=== PATIENT | female | born 1965 | race Caucasian/White ===

== ENCOUNTER → 2018-03-22 00:50 | Outpatient (CLI) | payer OTHER, SELFPAY ==
[2018-03-22 09:54] LABS: Hemoglobin A1C 10.5 % (4.5-6.2)
[2018-03-22 11:40] LABS: ALT 39 U/L (12-78); AST 31 U/L (15-37); Albumin 3.4 g/dL (3.4-5.0); Alkaline Phosphatase 120 U/L (46-116); Anion Gap 6.8 mmol/L (3-11); BUN 20 mg/dL (7-18); Bilirubin, Total 0.3 mg/dL (0.2-1.0); CO2 29.2 mmol/L (21.0-32.0); Calcium 8.7 mg/dL (8.5-10.1); Chloride 104 mmol/L (98-107); Cholesterol 202 mg/dL (50-200); Glucose 145 mg/dL (70-100); HDL Cholesterol 50 mg/dL (40-60); LDL CHOLESTEROL 143 mg/dL (<100); Potassium 4.7 mmol/L (3.5-5.1); Sodium 140 mmol/L (136-145); TSH (W/Ref FT4) 1.99 uIU/mL (0.358-3.74); Total Protein 6.7 g/dL (6.4-8.2); Triglyceride 62 mg/dL (30-150)
== END ==
PROVIDERS: Nurse Practitioner Gerontology; PCP Nurse Practitioner Family; Visit Provider Nurse Practitioner Family
DX: E03.9 Hypothyroidism, unspecified (principal); E11.9 Type 2 diabetes mellitus without complications; I10 Essential (primary) hypertension; Z01.419 Encounter for gynecological examination (general) (routine) without abnormal findings
CPT/HCPCS: 36415; 80053; 80061; 83721; 83036; 84443

== ENCOUNTER → 2018-03-26 12:31 | Outpatient (REF) | payer OTHER, SELFPAY ==
[2018-03-26 13:07] LABS: COMMENT (LAB VIEW ONLY) 33.58 mg/dL; Microalb ug/mg Crea 53.3 ug/mg Cr
== END ==
LOC: LBN 12:31
PROVIDERS: PCP Nurse Practitioner Family; Visit Provider Nurse Practitioner Family
DX: E10.9 Type 1 diabetes mellitus without complications (principal)
CPT/HCPCS: 82043; 82570

== ENCOUNTER 2018-06-11 07:54 | Outpatient (CLI) | payer OTHER, SELFPAY ==
[2018-06-12 19:53] LABS: Fructosamine 298 mcmol/L (200 - 285)
== END 2018-06-11 08:14 ==
PROVIDERS: PCP Nurse Practitioner Family; Visit Provider Internal Medicine Endocrinology, Diabetes & Metabolism
DX: E11.65 Type 2 diabetes mellitus with hyperglycemia (principal)
CPT/HCPCS: 36415; 82985

== ENCOUNTER 2018-07-09 02:11 | Outpatient (CLI) | payer OTHER, SELFPAY ==
[2018-07-09 17:08] LABS: FREE T4 1.27 ng/dL (0.76-1.46); TSH 2.94 uIU/mL (0.358-3.74)
[2018-07-09 17:26] LABS: Hemoglobin A1C 8.6 % (4.5-6.2)
== END 2018-07-09 02:31 ==
PROVIDERS: PCP Nurse Practitioner Family; Visit Provider Nurse Practitioner Family
DX: E10.9 Type 1 diabetes mellitus without complications (principal); E03.9 Hypothyroidism, unspecified
CPT/HCPCS: 36415; 83036; 84439; 84443

== ENCOUNTER 2018-09-26 11:17 | Outpatient (CLI) | payer OTHER, SELFPAY ==
--- NOTE | 2018-09-26 10:17 | DI.RAD_ITS ---
SYMPTOM/DIAGNOSIS: LT FOOT PAIN AFTER STUBBING TOES, M79.451 LEFT FOOT: No fracture or dislocation is seen. There are no significant degenerative changes. A heel spur is seen. IMPRESSION: No acute abnormality.
== END 2018-09-26 11:37 ==
PROVIDERS: PCP Nurse Practitioner Family; Visit Provider Nurse Practitioner Family
DX: M79.672 Pain in left foot (principal); M77.32 Calcaneal spur, left foot
CPT/HCPCS: 73630

== ENCOUNTER 2018-10-03 01:08 | Outpatient (CLI) | payer OTHER, SELFPAY ==
[2018-10-03 10:38] LABS: ALT 45 U/L (12-78); AST 30 U/L (15-37); Albumin 3.5 g/dL (3.4-5.0); Alkaline Phosphatase 153 U/L (46-116); Anion Gap 7.3 mmol/L (3-11); BUN 31 mg/dL (7-18); Bilirubin, Total 0.3 mg/dL (0.2-1.0); CO2 28.7 mmol/L (21.0-32.0); CREATININE 0.85 mg/dL (0.55-1.02); Calcium 9.4 mg/dL (8.5-10.1); Chloride 103 mmol/L (98-107); Cholesterol 175 mg/dL (50-200); Glucose 236 mg/dL (70-100); HDL Cholesterol 49 mg/dL (40-60); LDL CHOLESTEROL 112 mg/dL (<100); Potassium 4.9 mmol/L (3.5-5.1); Sodium 139 mmol/L (136-145); Total Protein 6.7 g/dL (6.4-8.2); Triglyceride 100 mg/dL (30-150)
[2018-10-03 10:43] LABS: Hemoglobin A1C 8.7 % (4.5-6.2)
== END 2018-10-03 01:28 ==
PROVIDERS: PCP Nurse Practitioner Family; Visit Provider Nurse Practitioner Family
DX: E10.9 Type 1 diabetes mellitus without complications (principal); E78.5 Hyperlipidemia, unspecified; I10 Essential (primary) hypertension
CPT/HCPCS: 36415; 80053; 80061; 83721; 83036

== ENCOUNTER 2019-01-05 01:24 | Outpatient (CLI) | payer OTHER, SELFPAY ==
--- NOTE | 2019-01-05 13:00 | DI.MAMMO_ITS ---
SYMPTOM/DIAGNOSIS: SCREENING, Z12.31 MAMMOGRAMS: Mammograms were interpreted according to the usual protocol including computer analysis with CAD system, tomosynthesis and C view imaging. Comparison with prior examinations. Breast density C. No suspicious masses or microcalcifications are seen. There is no definite evidence of malignancy. IMPRESSION: Negative mammogram. Routine screening is recommended. Category 1, breast density C. MQSA ASSESSMENT OF FINDINGS: Negative. Category 1. Patient will receive a letter notifying them of these results. Bi-RADS category C. The breasts are heterogeneously dense, which may obscure small masses.
== END 2019-01-05 01:44 ==
PROVIDERS: PCP Nurse Practitioner Family; Visit Provider Nurse Practitioner Family
DX: Z12.31 Encounter for screening mammogram for malignant neoplasm of breast (principal)
CPT/HCPCS: 77063; 77067

== ENCOUNTER 2019-02-17 01:37 | Outpatient (CLI) | payer OTHER, SELFPAY ==
[2019-02-17 09:24] LABS: FREE T4 1.37 ng/dL (0.76-1.46); TSH 1.91 uIU/mL (0.36-3.74)
[2019-02-18 14:35] LABS: Fructosamine 333 mcmol/L (200 - 285)
== END 2019-02-17 01:57 ==
PROVIDERS: Internal Medicine Endocrinology, Diabetes & Metabolism; PCP Nurse Practitioner Family; Visit Provider Nurse Practitioner Family
DX: E03.9 Hypothyroidism, unspecified (principal); E11.65 Type 2 diabetes mellitus with hyperglycemia
CPT/HCPCS: 36415; 82985; 84439; 84443

== ENCOUNTER 2019-02-25 07:05 | Outpatient (CLI) | payer OTHER, SELFPAY ==
[2019-02-25 08:12] LABS: Anion Gap 11.3 mmol/L (3-11); BUN 26 mg/dL (7-18); CO2 24.7 mmol/L (21.0-32.0); CREATININE 0.77 mg/dL (0.55-1.02); Calcium 8.8 mg/dL (8.5-10.1); Chloride 103 mmol/L (98-107); Glucose 125 mg/dL (70-100); Potassium 4.7 mmol/L (3.5-5.1); Sodium 139 mmol/L (136-145)
[2019-02-25 08:17] LABS: Hemoglobin A1C 8.8 % (4.5-6.2)
[2019-02-26 10:52] LABS: C-Peptide <0.1 ng/mL (1.1 - 4.4)
== END 2019-02-25 07:25 ==
PROVIDERS: PCP Nurse Practitioner Family; Visit Provider Internal Medicine Endocrinology, Diabetes & Metabolism
DX: E10.65 Type 1 diabetes mellitus with hyperglycemia (principal)
CPT/HCPCS: 36415; 80048; 86341; 83036; 84681

== ENCOUNTER 2019-05-18 15:18 | Outpatient (CLI) | payer OTHER, SELFPAY ==
[2019-05-18 16:15] LABS: Hemoglobin A1C 8.3 % (4.5-6.2)
== END 2019-05-18 15:38 ==
PROVIDERS: PCP Nurse Practitioner Family; Visit Provider Internal Medicine Endocrinology, Diabetes & Metabolism
DX: E10.65 Type 1 diabetes mellitus with hyperglycemia (principal)
CPT/HCPCS: 36415; 83036

== ENCOUNTER 2019-08-11 15:23 | Outpatient (CLI) | payer OTHER, SELFPAY ==
[2019-08-11 16:34] LABS: Hemoglobin A1C 9.1 % (3.8-5.6)
[2019-08-11 16:51] LABS: COMMENT (LAB VIEW ONLY) 110.88 mg/dL
[2019-08-11 16:53] LABS: Microalb ug/mg Crea 149.4 ug/mg Cr
[2019-08-11 16:54] LABS: Anion Gap 10.6 mmol/L (3-11); BUN 26 mg/dL (7-18); CO2 27.4 mmol/L (21.0-32.0); CREATININE 0.86 mg/dL (0.55-1.02); Calcium 9.9 mg/dL (8.5-10.1); Chloride 103 mmol/L (98-107); Glucose 169 mg/dL (74-106); Potassium 4.5 mmol/L (3.5-5.1); Sodium 141 mmol/L (136-145); TSH 9.27 uIU/mL (0.36-3.74)
== END 2019-08-11 15:43 ==
PROVIDERS: PCP Nurse Practitioner Family; Visit Provider Internal Medicine Endocrinology, Diabetes & Metabolism
DX: E10.65 Type 1 diabetes mellitus with hyperglycemia (principal); E03.9 Hypothyroidism, unspecified
CPT/HCPCS: 36415; 80048; 82043; 82570; 83036; 84439; 84443

== ENCOUNTER 2020-01-05 03:36 | Outpatient (CLI) | payer OTHER, SELFPAY ==
[2020-01-05 07:45] LABS: Hemoglobin A1C 9.1 % (3.8-5.6)
[2020-01-05 08:28] LABS: Anion Gap 6.3 mmol/L (3-11); BUN 19 mg/dL (7-18); CO2 31.7 mmol/L (21.0-32.0); CREATININE 0.88 mg/dL (0.55-1.02); Calcium 9.1 mg/dL (8.5-10.1); Calculated LDL 144 mg/dL (<100); Chloride 104 mmol/L (98-107); Cholesterol 204 mg/dL (<200); Glucose 152 mg/dL (74-106); HDL Cholesterol 48 mg/dL (40-60); Potassium 4.6 mmol/L (3.5-5.1); Sodium 142 mmol/L (136-145); Triglyceride 63 mg/dL (<150)
== END 2020-01-05 03:56 ==
PROVIDERS: PCP Nurse Practitioner Family; Visit Provider Nurse Practitioner Family
DX: E10.9 Type 1 diabetes mellitus without complications (principal); E03.9 Hypothyroidism, unspecified
CPT/HCPCS: 36415; 80048; 80061; 83036; 84439; 84443

== ENCOUNTER 2020-01-20 01:27 | Outpatient (CLI) | payer OTHER, SELFPAY ==
--- NOTE | 2020-01-20 08:45 | DI.MAMMO_ITS ---
EXAM: MG MAMMO SCREENING CLINICAL HISTORY: screening,Z12.39 TECHNIQUE: Mammograms were interpreted according to the usual protocol including computer analysis w [employer] CAD system, tomosynthesis and C-view imaging. COMPARISON: FINDINGS: The breasts are heterogeneously dense with fairly symmetrical distribution of fibroglandular tissue. No dominant mass or clumped microcalcification is identified in either breast. The current examinat ion is compared with previous studies including December 2018 and there has been no gross interval change in appearance. IMPRESSION: No specific evidence of malignancy at this time. Routine screening examinations are suggested at yea rly intervals in this age group according to the ACS ACR guidelines. BI-RADS Category 1 - Negative Breast Density - Category C - Heterogeneously dense
== END 2020-01-20 01:47 ==
PROVIDERS: PCP Nurse Practitioner Family; Visit Provider Nurse Practitioner Family
DX: Z12.31 Encounter for screening mammogram for malignant neoplasm of breast (principal)
CPT/HCPCS: 77063; 77067

== ENCOUNTER 2020-03-22 15:56 | Outpatient (CLI) | payer OTHER, SELFPAY ==
--- NOTE | 2020-03-22 09:02 | DI.RAD_ITS ---
EXAM: XR SHOULDER RT COMPLETE 2+V CLINICAL HISTORY: Right shoulder pain. Limited ROM, M25.511 TECHNIQUE: COMPARISON: No exams were available for comparison FINDINGS: Six views were obtained. There is minimal marginal osteophyte formation of the glenoid and humeral h ead. Minimal hypertrophic degenerative changes noted at the acromioclavicular joint. No other signi ficant bony or soft tissue abnormality seen. Cartilaginous joint space of the glenohumeral joint eitan ears well maintained. IMPRESSION: Minimal DJD of the joints of the shoulder. RADIATION DOSE DELIVERED: Total DLP
== END 2020-03-22 16:16 ==
PROVIDERS: PCP Nurse Practitioner Family; Visit Provider Nurse Practitioner Family
DX: M19.011 Primary osteoarthritis, right shoulder (principal); M25.511 Pain in right shoulder; M25.611 Stiffness of right shoulder, not elsewhere classified; M25.711 Osteophyte, right shoulder
CPT/HCPCS: 73030

== ENCOUNTER 2020-04-04 07:40 | Outpatient (CLI) | payer OTHER, SELFPAY ==
[2020-04-05 14:46] LABS: COVID-19 RT-PCR Result NEGATIVE (Negative)
== END 2020-04-04 08:00 ==
PROVIDERS: PCP Nurse Practitioner Family; Visit Provider Family Medicine
DX: Z11.59 Encounter for screening for other viral diseases (principal); Z01.811 Encounter for preprocedural respiratory examination
CPT/HCPCS: U0003

== ENCOUNTER 2020-04-07 03:15 | Outpatient (CLI) | payer OTHER, SELFPAY ==
[2020-04-07] MEDS: Albuterol HFA 18 GM 200 PUFF INH IH (11:26)
[2020-04-07] MEDS: Inhaler, Assist Device 1 EACH MC (11:27)
--- NOTE | 2020-04-11 08:27 | PFT_ITS ---
Date of service: 04/07/20 Time of Service: 10:11 Pulmonary Function Test Result Interpretation Spirometry: No evidence of obstructive airways disease but there is significant bronchodilator response. This represents a much better patient effort.Therefore, the true validity of this result is questionable Lung Volumes: No restriction Diffusion Capacity: Normal Airway Pressure: Normal Impression No evidence of obstructive airways disease but there is significant bronc hodilator response. This represents a much better patient effort.Therefore, the true validity of this result is questionable Clinical Correlation therefore is recommended.
== END 2020-04-07 03:35 ==
PROVIDERS: PCP Nurse Practitioner Family; Visit Provider Nurse Practitioner Family
DX: R06.2 Wheezing (principal); R05 Cough; R07.89 Other chest pain
CPT/HCPCS: 94060; 94726; 94729

== ENCOUNTER 2020-04-11 22:00 | Outpatient (REF) | payer OTHER, SELFPAY ==
[2020-04-11 21:33] LABS: FREE T4 1.45 ng/dL (0.76-1.46); TSH 4.53 uIU/mL (0.36-3.74)
== END 2020-04-11 22:20 ==
LOC: LBN 22:00
PROVIDERS: PCP Nurse Practitioner Family; Visit Provider Nurse Practitioner Family
DX: E03.9 Hypothyroidism, unspecified (principal)
CPT/HCPCS: 84439; 84443

== ENCOUNTER 2020-04-13 01:57 | Outpatient (CLI) | payer OTHER, SELFPAY ==
--- NOTE | 2020-04-13 07:00 | DI.US_ITS ---
EXAM: US PELVIS TRANSVAGINAL CLINICAL HISTORY: Assess for endometrial stripe, ovarian cyst,postmenopausal bleeding,n95.0 TECHNIQUE: Ultrasound performed using standard protocol. COMPARISON: No exams were available for comparison FINDINGS: Pelvic ultrasound was performed transabdominally and transvaginally. Please see the accompanying debra a sheet for measurements of the pelvic structures. The myometrium has a heterogeneous echotexture, no definite focal lesion seen. Endometrial stripe is about 7 millimeters in thickness and is heterogeneous in appearance, this is an abnormal finding in a postmenopausal patient and endometrial biopsy is recommended to evaluate the possibility of neoplas tic process. Left ovary nonvisualized. Right ovary contains a 15 millimeter in diameter simple cyst. Limited scanning of the kidneys is unremarkable. No free fluid identified in pelvis. IMPRESSION: Thickened heterogeneous endometrial stripe, 7 millimeters, abnormal in a postmenopausal patient, endo metrial biopsy should be considered to evaluate the possibility of neoplastic process. DATA REPOSITORY:
== END 2020-04-13 02:17 ==
PROVIDERS: PCP Nurse Practitioner Family; Visit Provider Nurse Practitioner Family
DX: N95.0 Postmenopausal bleeding (principal); N85.8 Other specified noninflammatory disorders of uterus
CPT/HCPCS: 76830; 76856

== ENCOUNTER 2020-04-14 15:31 | Outpatient (REF) | payer OTHER, SELFPAY ==
--- NOTE | 2020-04-14 14:36 | ENDOMET_PTH ---
PATIENT: Zara Strong LOC: [facility] U#:[id number] AGE/SX: 54/F ROOM: RE04/14/[address]: Kendra Negron DO : 1965 BED: DIS: 04/14/2020 SPEC #: [id number] RECD: 04/14/20 18:17 STATUS: KINJAL REQ #: [id number] [place]: 04/14/20 14:[address]: Kendra Negrno DEPT: Surgical Specimen RECD BY: Keeley Raza ENTERED: 04/14/20 18:18 SP TYPE: Endomet OTHR DR: RAKAN Gaxiola Tissues: 1 - ENDOMETRIUM BX/CURRETTE 2 - ENDOMETRIUM BX/CURRETTE Procedures: GROSS AND MICRO LEVEL 4 Comments: [id number]
== END 2020-04-14 15:51 ==
LOC: LBN 15:31
PROVIDERS: PCP Nurse Practitioner Family; Visit Provider Obstetrics & Gynecology
DX: N85.8 Other specified noninflammatory disorders of uterus (principal); N84.0 Polyp of corpus uteri
CPT/HCPCS: 88305

== ENCOUNTER 2020-04-22 04:18 | Outpatient (CLI) | payer OTHER, SELFPAY ==
--- NOTE | 2020-04-22 06:15 | DI.MRI_ITS ---
EXAM: MR UPPER JOINT RT WO CLINICAL HISTORY: Traumatic R Shoulder pain and weakness,m25.511. TECHNIQUE: Multiplanar multisequence MRI was performed. COMPARISON: CR XR SHOULDER RT COMPLETE 2+V from 03/22/2020 FINDINGS: The examination is limited due to patient motion artifact. BONES: There is no fracture or contusion pattern. JOINTS: The acromioclavicular joint is normal. The glenohumeral joint is normal. TENDONS: Supraspinatus: Partial articular surface supraspinatus tendon tear. Infraspinatus: Unremarkable. Subscapularis: Tendinosis of the superior aspect of the subscapularis tendon. Teres Minor: Unremarkable. Biceps and [place]: Unremarkable. MUSCLES: Unremarkable. GLENOID LABRUM: Unremarkable on this noncontrast examination. SOFT TISSUES: Unremarkable. LIGAMENTS: Unremarkable. OTHER: Small amount of fluid in the subacromial bursa. IMPRESSION: 1. Partial articular surface supraspinatus tendon tear. 2. Tendinosis of the subscapularis tendon. 3. Mild subacromial bursitis. DATA REPOSITORY:
== END 2020-04-22 04:38 ==
PROVIDERS: PCP Nurse Practitioner Family; Visit Provider Nurse Practitioner Family
DX: M25.511 Pain in right shoulder (principal); S46.011A Strain of muscle(s) and tendon(s) of the rotator cuff of right shoulder, initial encounter; M75.51 Bursitis of right shoulder; M75.91 Shoulder lesion, unspecified, right shoulder
CPT/HCPCS: 73221

== ENCOUNTER 2020-06-17 03:11 | Outpatient (CLI) | payer OTHER, SELFPAY ==
[2020-06-17 08:25] LABS: Hemoglobin A1C 7.3 % (<5.7)
[2020-06-17 09:16] LABS: Anion Gap 5.3 mmol/L (3-11); BUN 16 mg/dL (7-18); CO2 29.7 mmol/L (21.0-32.0); CREATININE 0.77 mg/dL (0.55-1.02); Calcium 9.3 mg/dL (8.5-10.1); Chloride 105 mmol/L (98-107); Glucose 70 mg/dL (74-106); Potassium 4.4 mmol/L (3.5-5.1); Sodium 140 mmol/L (136-145); TSH 7.85 uIU/mL (0.36-3.74)
== END 2020-06-17 03:31 ==
PROVIDERS: PCP Nurse Practitioner Family; Visit Provider Internal Medicine Endocrinology, Diabetes & Metabolism
DX: E03.9 Hypothyroidism, unspecified (principal); E10.65 Type 1 diabetes mellitus with hyperglycemia
CPT/HCPCS: 36415; 80048; 83036; 84443

== ENCOUNTER 2020-09-22 03:15 | Outpatient (CLI) | payer OTHER, SELFPAY ==
[2020-09-22 11:43] LABS: ALT 49 U/L (14-59); AST 33 U/L (15-37); Albumin 3.7 g/dL (3.4-5.0); Alkaline Phosphatase 137 U/L (46-116); Anion Gap 9.3 mmol/L (3-11); BUN 17 mg/dL (7-18); Bilirubin, Total 0.3 mg/dL (0.2-1.0); CO2 27.7 mmol/L (21.0-32.0); CREATININE 0.7 mg/dL (0.55-1.02); Calcium 9.9 mg/dL (8.5-10.1); Calculated LDL 69 mg/dL (<100); Chloride 103 mmol/L (98-107); Cholesterol 144 mg/dL (<200); Glucose 152 mg/dL (74-106); HDL Cholesterol 60 mg/dL (40-60); Potassium 4.7 mmol/L (3.5-5.1); Sodium 140 mmol/L (136-145); Total Protein 7.4 g/dL (6.4-8.2); Triglyceride 76 mg/dL (<150)
[2020-09-22 11:48] LABS: FREE T4 1.45 ng/dL (0.76-1.46); TSH 2.95 uIU/mL (0.36-3.74)
[2020-09-22 12:00] LABS: Hemoglobin A1C 7.1 % (<5.7)
[2020-09-23 21:29] LABS: Fructosamine 285 mcmol/L (200 - 285)
== END 2020-09-22 03:16 | disposition home or self-care (01) ==
LOC: LBO 03:15
PROVIDERS: PCP Nurse Practitioner Family; Visit Provider Internal Medicine Endocrinology, Diabetes & Metabolism
DX: E03.9 Hypothyroidism, unspecified (principal); E10.3293 Type 1 diabetes mellitus with mild nonproliferative diabetic retinopathy without macular edema, bilateral
CPT/HCPCS: 36415; 80053; 80061; 82985; 83036; 84439; 84443

== ENCOUNTER 2021-01-03 03:29 | Outpatient (CLI) | payer OTHER, SELFPAY ==
[2021-01-03 13:35] LABS: COMMENT (LAB VIEW ONLY) 173.41 mg/dL
[2021-01-04 18:51] LABS: Fructosamine 245 mcmol/L (200 - 285)
== END 2021-01-03 03:30 | disposition home or self-care (01) ==
LOC: LOS 03:29
PROVIDERS: PCP Nurse Practitioner Family; Visit Provider Internal Medicine Endocrinology, Diabetes & Metabolism
DX: E10.65 Type 1 diabetes mellitus with hyperglycemia (principal); E10.29 Type 1 diabetes mellitus with other diabetic kidney complication
CPT/HCPCS: 36415; 82043; 82570; 82985; 83036

== ENCOUNTER 2021-02-28 13:04 | Outpatient (CLI) | payer OTHER, SELFPAY ==
--- NOTE | 2021-02-28 09:41 | DI.MAMMO_ITS ---
Exam(s) MAMMO SCREENING EXAM: MAMMO SCREENING CLINICAL HISTORY: screening,Z12.39 TECHNIQUE: Mammograms were interpreted according to the usual protocol including computer analysis w [employer] CAD system, tomosynthesis and C-view imaging. COMPARISON: FINDINGS: The breasts are heterogeneously dense. There is no dominant mass microcalcification identified in ei ther breast. The current examination is compared with previous examinations including December 2019 and there has been no gross interval change in appearance in comparison with the prior studies. IMPRESSION: No specific evidence of malignancy at this time. Routine screening examinations are suggested at yea rly intervals due to the family history of breast carcinoma. BI-RADS Category 1 - Negative Breast Density - Category C - Heterogeneously dense
== END 2021-02-28 13:24 ==
PROVIDERS: PCP Nurse Practitioner Family; Visit Provider Nurse Practitioner Family
DX: Z12.31 Encounter for screening mammogram for malignant neoplasm of breast (principal); Z80.3 Family history of malignant neoplasm of breast
CPT/HCPCS: 77063; 77067

== ENCOUNTER 2021-03-21 04:21 | Outpatient (CLI) | payer OTHER, SELFPAY ==
[2021-03-21 10:26] LABS: Abs Immature Grans 0.03 10^3/uL (0.0-0.06); Absolute Basophil Count 0.07 10^3/uL (0.0-0.2); Absolute Eosinophil Count 0.34 10^3/uL (0.0-0.7); Absolute Lymphocyte Count 2.88 10^3/uL (1.2-3.4); Absolute Monocyte Count 0.71 10^3/uL (0.1-0.8); Absolute Neutrophil Count 4.54 10^3/uL (1.2-6.7); Basophils % 0.8; HCT 35.5 % (36.0-46.0); HGB 11.7 g/dL (11.2-15.7); Immature Grans % 0.4; Lymphocytes % 33.6; MCH 27.6 pg (27.0-33.0); MCV 83.7 fL (80-95); MPV 9.8 fL (8.0-11.0); Monocytes % 8.3; Neutrophils % 52.9; Nucleated RBC 0 %; Platelet Count 286 10^3/uL (130-400); RBC 4.24 10^6/uL (3.93-5.22); RDW 14.1 % (11.7-14.6); RDW-SD 42.6 fL; WBC 8.57 10^3/uL (4.4-10.8)
[2021-03-21 11:12] LABS: Glucose 104 mg/dL (74-106)
[2021-03-21 12:48] LABS: Source Nasal/Nares
[2021-03-21 15:33] LABS: COVID-19 PCR Negative (Negative)
== END 2021-03-21 04:22 | disposition home or self-care (01) ==
LOC: LBO 04:21
PROVIDERS: PCP Nurse Practitioner Family; Visit Provider Obstetrics & Gynecology
DX: N95.0 Postmenopausal bleeding (principal); E10.9 Type 1 diabetes mellitus without complications; I10 Essential (primary) hypertension; N18.9 Chronic kidney disease, unspecified; Z20.822 Contact with and (suspected) exposure to COVID-19; Z01.818 Encounter for other preprocedural examination; Z01.812 Encounter for preprocedural laboratory examination
CPT/HCPCS: 36415; 82947; 86850; 86900; 86901; 87635; 85025

== ENCOUNTER 2021-03-23 06:02 | Day surgery (SDC) | payer OTHER, SELFPAY ==
[2021-03-23 06:14] VITALS: BP 143/65; PULSE 67; RESP 18; TEMP 36.8; O2SAT 99
--- NOTE | 2021-03-23 06:53 | ANES.PREOP_ITS ---
General Info Date of Service Date Performed: 03/23/21 Height: 5 ft 2 in Weight: 100 kg Body Mass Index (BMI): 40.3 Surgical Procedure: Operation Date: 03/23/21 07:40 Proposed Procedures Side Surgeon p Dilation & Curettage with Hysteroscopy Kendra Negron DO Meds Allergies and Home Medications Allergies Allergy/AdvReac Type Severity Reaction Status Date / Time Latex, Natural Rubber Allergy Unknown Skin Rash Verified 03/23/21 06:25 Home Medication Medication Instructions Recorded blood sugar diagnostic #50 each 09/25/18 multivitamin 1 cap PO DAILY 09/25/18 vitamin B complex 1 tab PO DAILY 09/25/18 albuterol sulfate 90 mcg/actuation 2 inh IH Q6H PRN #18 gm 01/07/20 aerosol inhaler blood-glucose meter,continuous #1 each 04/05/20 blood-glucose sensor #4 each 04/05/20 blood-glucose transmitter #1 each 04/05/20 insulin lispro 100 unit/mL See Rx Instructions SUBCUT AC #4 08/11/20 subcutaneous pen syrg fluticasone propionate 110 1 inh INHALATION BID #12 g 09/12/20 mcg/actuation HFA aerosol inhaler levothyroxine 175 mcg tablet 175 mcg PO DAILY #90 tab-cap 09/26/20 lisinopril 40 mg tablet 40 mg PO DAILY #90 tab-cap 10/13/20 pravastatin 10 mg tablet 10 mg PO DAILY #90 tab 11/17/20 chlorthalidone 25 mg tablet 25 mg PO DAILY #90 tab 01/27/21 cranberry concentrate-ascorbic 4 cap PO DAILY cap 01/27/21 acid 4,200 mg-20 mg capsule insulin degludec 100 unit/mL (3 26 - 28 unit SC QHS ml 01/27/21 mL) subcutaneous pen clotrimazole 1 % topical cream 1 applic TOPICAL BID #45 g 01/30/21 norethindrone acetate 5 mg tablet 5 mg PO .COMPLEX #30 tab 02/03/21 Current Visit Medications: Current Medications Generic Name Dose Route Start Last Admin Trade Name Freq PRN Reason Stop Dose Admin Ringer's Solution 1,000 mls @ 125 mls/hr 03/23/21 06:00 IV 04/21/21 23:59 INFUSION SHERRI IV Miscellaneous Supplies 1 each 03/23/21 06:00 Iv Access IV 04/21/21 23:59 DIRECTED SHERRI Sodium Chloride 0 ml 03/23/21 06:00 Normal Saline Flush 10 Ml Syr IV 04/21/21 23:59 PRN PRN Sodium Chloride 0 ml 03/23/21 06:00 Normal Saline 10 Ml Vial IJ 04/21/21 23:59 DIRECTED PRN Sterile Water 0 ml 03/23/21 06:00 Water,Injection,Sterile 10 Ml Vial IJ 04/21/21 23:59 DIRECTED PRN PFSH Active Problems Active Problems: Problem Status Onset Code Postmenopausal bleeding N95.0 Type 1 diabetes mellitus 1971 E10.9 CKD (chronic kidney disease) N18.9 Essential hypertension I10 Hyperlipidemia E78.5 Hypothyroidism E03.9 Mild persistent asthma J45.30 Diabetic retinopathy E11.319 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 Patten Surgical History Surgical History History of bilateral tubal ligation (05/30/95) History of section (08/31/86) 08/31/86; 05/30/95 History of left cataract surgery (10/13/13) History of right cataract surgery (10/27/13) S/P arthroscopy of right shoulder (07/08/20) With decompression, biceps tenodesisis, labral debridement at [facility] Tobacco Smoking/Tobacco Use Status: Former Tobacco Use Tobacco: How many years used: 38 Passive smoking exposure: Yes Second hand exposure: Yes Alcohol Alcohol Intake: former Substance Use Substance use: Rarely Substance use type: marijuana Details: last used marijuana over a year ago Prental History History 2 Para 2 Hx # Term Pregnancies Multiple births Hx # Pregnancies Ectopic pregnancies AB induced Hx Number of Living Children 2 AB spontaneous Vital Signs and Lab Results Vital Signs Most Recent Vital Signs in EMR: Most Recent Vital Signs Temp Pulse Resp BP Pulse Ox 36.8 C 67 18 143/65 H 99 03/23/21 06:14 03/23/21 06:14 03/23/21 06:14 03/23/21 06:14 03/23/21 06:14 Lab Results Blood Type / Crossmatch: Patient ABO/Rh O Positive 03/21/21 10:05 03/21/21 Antibody Screen NEGATIVE 03/21/21 10:05 03/21/21 Complete Blood Count: White Blood Count 8.57 10^3/uL (4.4-10.8) 03/21/21 10:05 03/21/21 Red Blood Count 4.24 10^6/uL (3.93-5.22) 03/21/21 10:05 03/21/21 Hemoglobin 11.7 g/dL (11.2-15.7) 03/21/21 10:05 03/21/21 Hematocrit 35.5 % (36.0-46.0) L 03/21/21 10:05 03/21/21 Platelet Count 286 10^3/uL (130-400) 03/21/21 10:05 03/21/21 Complete Metabolic Panel: Glucose Level 104 mg/dL (74-106) 03/21/21 10:05 03/21/21 Liver Function Panel: No Data to Display Coagulation Panel: No Data to Display Cardiac Panel: No Data to Display Arterial Blood Gas: No Data to Display Venous Blood Gas: No Data to Display Pancreas Panel: No Data to Display Thyroid Panel: No Data to Display Infectious Disease: Coronavirus (COVID-19)(PCR) Negative (Negative) 03/21/21 10:09 03/21/21 Coronavirus 2019 Source Nasal/Nares 03/21/21 10:09 03/21/21 Blood Cultures: No Data to Display Toxicology Panel: No Data to Display Imaging and Studies Imaging and Studies Pulmonary Function Summary: Impression No evidence of obstructive airways disease but there is significant bronchodilator response. This represents a much better patient effort.Therefore, the true validity of this result is questionable Clinical Correlation therefore is recommended. 04/11/20 Anesthesia Assessment and Plan Anesthesia History Personal History: No History of Anesthesia Complications Family History: No Family History of Anesthesia Complications Exercise Tolerance Exercise Tolerance: Metabolic Equivalents<4 Pertinent Negatives Pertinent Negatives: No Symptoms of GERD, No Major Cardiovascular Symptoms or Complaints, No History of CVA/TIA and Other (mild persistent asthma, BID flovent, rarely uses rescue inhaler. Exercise limited by SOB) Cardiac & Pulmonary Exam Cardiac Exam: Normal S1/S2 Heart Sounds Pulmonary Exam: Clear Bilateral Breath Sounds Airway Exam Known Difficult Airway: No Mallampati Class: 2 Mouth Opening: Normal (> 3cm) Thyromental Distance: Greater than 3 cm Neck Range of Motion: Full ROM Neck Circumference: Normal Teeth Condition: Normal Dentition ASA Classification ASA Score: ASA 3 Emergency Case?: No NPO Status NPO Status: NPO Clears >2 hours, Solids >8 hours Anesthesia Plan Resuscitation Status: Full Code Anesthesia Technique: General Anesthesia Airway Planned: Natural Airway Monitors Used: Standard Monitors
[2021-03-23] MEDS: Lactated Ringers 1,000 ML 125 ML IV (06:57)
[2021-03-23 07:16] VITALS: BMI 40.3
--- NOTE | 2021-03-23 07:45 | ENDO_PTH ---
PATIENT: Zara Strong LOC: [facility] U#:[id number] AGE/SX: 55/F ROOM: RE03/23/[address]: Kendra Negron DO : 1965 BED: DIS: 03/23/2021 SPEC #: [id number] RECD: 03/23/21 12:47 STATUS: KINJAL RE #: [id number] [place]: 03/23/21 07:[address]: Kendra Negron DEPT: Surgical Specimen RECD BY: Keeley Raza ENTERED: 03/23/21 12:48 SP TYPE: Endo OTHR DR: RAKAN Gaxiola Tissues: 1 - ENDOCERVICAL BX/CURRETTE 2 - ENDOMETRIUM BX/CURRETTE Procedures: GROSS AND MICRO LEVEL 4 Comments: [id number]
--- NOTE | 2021-03-23 08:06 | W.PM.OP ---
Date of service: 03/23/21 Time of Service: 08:06 Operative Note Operative Note DATE OF PROCEDURE: 03/23/21 PRE-OP DIAGNOSIS: Postmenopausal bleeding and 16mm endometrium POST-OP DIAGNOSIS: same (With evidence of multiple endometrial polyps) PROCEDURE: Hysteroscopy with dilation and curettage SURGEON: Judith Negron ANESTHESIA TYPE: General:No Airway Refer to Anesthesia Record ESTIMATED BLOOD LOSS: 20 PATHOLOGY: other (1. Endocervical curetting 2. Endometrial curetting) COMPLICATIONS: None Patient was transported to: same day Patient's condition: stable Indications: Postmenopausal bleeding and thickened endometrium Findings: Ripley endometrium with multiple polypoid structures Procedure Description: Patient was taken the operating suite with an IV running where she is placed in dorsal supine position. Anesthesia administered via monitored anesthesia care. She was then placed in the modified dorsolithotomy position in yellowfin stirrups and prepped and draped in the usual sterile fashion. Exam under anesthesia revealed a uterus that is midline and mobile. Speculum was placed into the posterior vaginal vault and single-tooth tenaculum used to grasp the anterior lip of the cervix. Cervical os dilated to the point that a 5 mm hysteroscope could be passed with ease. With instillation of normal saline for visualization of the endometrial cavity, entire endometrial cavity was inspected. There was a plush endometrial lining along with multiple polypoid structures. There is no discrete fibroid known. At this point hysteroscope was removed and endocervical curettage performed. This was followed by sharp endometrial curettage with retrieval of multiple small polyps. At this point, the procedure was terminated. Speculum and tenaculum were removed. Tenaculum sites were hemostatic. Patient was returned to the dorsal supine position and awoke from anesthesia with ease. She was taken to recovery room in stable condition. Findings: [place]y endometrium with multiple polypoid structures EBL: 20 cc Pathology 1. Endocervical curettings 2. Endometrial curettings Complications: None apparent
[2021-03-23 08:08] VITALS: BP 135/59; PULSE 69; RESP 20; TEMP 36.5; O2SAT 98
--- NOTE | 2021-03-23 08:08 | W.ANESPOSTOP ---
Postoperative Evaluation Date, Time and Location Date Performed: 03/23/21 Time Performed: 08:08 Patient Location: Day Surgery Unit Vital Signs Most Recent Imported Vital Signs: Most Recent Vital Signs Temp Pulse Resp BP Pulse Ox 36.8 C 67 18 143/65 H 99 03/23/21 06:14 03/23/21 06:14 03/23/21 06:14 03/23/21 06:14 03/23/21 06:14 Most Recent Manually Entered Vital Signs: Adult Blood Pressure: 135/59 Heart Rate: 74 Respirations: 12 Oxygen Saturation (%): 99 Temperature (C): 36.5 C Pain Score (0-10 Scale): 5 Pain Score Most Recent Pain Score: Most Recent Pain Score Pain Level 0 03/23/21 06:14 Assessment Mental Status: Awake (Alert & Oriented to Patient Baseline) Airway and Respiratory Function: Patent airway with normal (patient baseline) respiratory exam Cardiovascular Function: Hemodynamically Stable Hydration Status: Adequately Hydrated Nausea & Vomiting: No Nausea or Vomiting Pain: Pain is tolerable per patient (Post op tylenol and ibuprofen) Peripheral Nerve Block: Patient did not receive a nerve block
[2021-03-23 08:10] VITALS: BP 135/59; PULSE 74; RESP 12; TEMPC 36.5; O2SAT 99
[2021-03-23] MEDS: Acetaminophen 500 MG TAB 1000 MG PO (08:29)
[2021-03-23 08:40] VITALS: BP 145/67; PULSE 66; RESP 18; TEMP 36.5; O2SAT 99
== END 2021-03-23 09:16 | disposition home or self-care (01) ==
PROVIDERS: PCP Nurse Practitioner Family; Visit Provider Obstetrics & Gynecology
PROC: 0UDB8ZZ Extraction of Endometrium, Via Natural or Artificial Opening Endoscopic (ICD-10-PCS; CPT 58558; principal; 2021-03-23 07:30)
DX: N84.0 Polyp of corpus uteri (principal); N95.0 Postmenopausal bleeding; E11.9 Type 2 diabetes mellitus without complications; I10 Essential (primary) hypertension; E66.9 Obesity, unspecified; Z98.890 Other specified postprocedural states
CPT/HCPCS: 58558; 88305; J2001; J2370

== ENCOUNTER 2021-04-04 17:30 | Outpatient (REF) | payer OTHER, SELFPAY ==
--- NOTE | 2021-04-04 16:30 | SKI_PTH ---
PATIENT: Zara Strong LOC: [facility] U#:[id number] AGE/SX: 55/F ROOM: RE04/04/[address]: Phi Peralta DO : 1965 BED: DIS: 04/04/2021 SPEC #: [id number] RECD: 04/05/21 12:39 STATUS: KINJAL REChristian #: [id number] [place]: 04/04/21 16:[address]: Phi Peralta DEPT: Surgical Specimen RECD BY: Keeley Raza ENTERED: 04/05/21 12:39 SP TYPE: DELROY DAVIS DR: RAKAN Gaxiola Tissues: 1 - SKIN BIOPSY(SHAVE/PUNCH) Procedures: IMMUNOPEROXIDASE STAIN SKIN LEVEL 4 Comments: [id number]
== END 2021-04-04 17:31 | disposition home or self-care (01) ==
LOC: LBN 17:30
PROVIDERS: PCP Nurse Practitioner Family; Visit Provider Emergency Medicine
DX: L98.6 Other infiltrative disorders of the skin and subcutaneous tissue (principal)
CPT/HCPCS: 88305; 88361

== ENCOUNTER 2021-06-23 02:54 | Outpatient (CLI) | payer OTHER, SELFPAY ==
[2021-06-23 15:21] LABS: Hemoglobin A1C 6.5 % (<5.7)
[2021-06-23 15:30] LABS: COMMENT (LAB VIEW ONLY) 92.73 mg/dL; Microalb ug/mg Crea 72.5 ug/mg Cr
[2021-06-24 11:58] LABS: Fructosamine 259 mcmol/L (200 - 285)
== END 2021-06-23 02:55 | disposition home or self-care (01) ==
LOC: LBO 02:54
PROVIDERS: PCP Nurse Practitioner Family; Visit Provider Internal Medicine Endocrinology, Diabetes & Metabolism
DX: E10.65 Type 1 diabetes mellitus with hyperglycemia (principal); E10.29 Type 1 diabetes mellitus with other diabetic kidney complication
CPT/HCPCS: 36415; 82043; 82570; 82985; 83036

== ENCOUNTER 2021-09-19 04:00 | Outpatient (CLI) | payer OTHER, SELFPAY ==
[2021-09-19 14:20] LABS: Hemoglobin A1C 6.7 % (<5.7)
[2021-09-19 14:30] LABS: BUN 27 mg/dL (7-18); CREATININE 0.9 mg/dL (0.55-1.02); Calcium 9.2 mg/dL (8.5-10.1); Calculated LDL 110 mg/dL (<100); Chloride 104 mmol/L (98-107); Cholesterol 180 mg/dL (<200); Glucose 142 mg/dL (74-106); HDL Cholesterol 55 mg/dL (40-60); Potassium 4.7 mmol/L (3.5-5.1); Sodium 140 mmol/L (136-145); TSH 1.21 uIU/mL (0.36-3.74); Triglyceride 79 mg/dL (<150)
[2021-09-19 14:51] LABS: FREE T4 1.33 ng/dL (0.76-1.46)
[2021-09-20 15:22] LABS: Fructosamine 276 mcmol/L (200 - 285)
== END 2021-09-19 04:01 | disposition home or self-care (01) ==
LOC: LBO 04:00
PROVIDERS: PCP Nurse Practitioner Family; Visit Provider Internal Medicine Endocrinology, Diabetes & Metabolism
DX: E10.65 Type 1 diabetes mellitus with hyperglycemia (principal); E78.00 Pure hypercholesterolemia, unspecified
CPT/HCPCS: 36415; 80048; 80061; 82985; 83036; 84439; 84443

== ENCOUNTER 2022-01-24 01:57 | Outpatient (CLI) | payer OTHER, SELFPAY ==
[2022-01-24 13:42] LABS: Hemoglobin A1C 7.1 % (<5.7)
[2022-01-24 13:55] LABS: Anion Gap 6.1 mmol/L (3-11); BUN 31 mg/dL (7-18); CO2 27.9 mmol/L (21.0-32.0); CREATININE 0.8 mg/dL (0.55-1.02); Chloride 103 mmol/L (98-107); Glucose 150 mg/dL (74-106); Potassium 4.2 mmol/L (3.5-5.1); Sodium 137 mmol/L (136-145)
[2022-01-24 13:59] LABS: COMMENT (LAB VIEW ONLY) 66.41 mg/dL; Microalb ug/mg Crea 141.1 ug/mg Cr
[2022-01-25 16:05] LABS: Fructosamine 303 mcmol/L (200 - 285)
== END 2022-01-24 01:58 | disposition home or self-care (01) ==
LOC: LBO 01:57
PROVIDERS: PCP Nurse Practitioner Family; Visit Provider Internal Medicine Endocrinology, Diabetes & Metabolism
DX: E10.65 Type 1 diabetes mellitus with hyperglycemia (principal)
CPT/HCPCS: 36415; 80048; 82043; 82570; 82985; 83036

== ENCOUNTER → 2022-02-13 00:33 | Outpatient (CLI) | payer OTHER, SELFPAY ==
--- NOTE | 2022-02-13 09:00 | ETT_ITS ---
APPROVED REPORT Exam: Exercise Treadmill Patient Location: Out-Patient Room/Bed: Stress Nurse: Brandie Bhakta RN Ordering Provider:BLAYNE SHAH, Contact Number: [phone] BMI: 39.13 Baseline Rhythm: Sinus Rhythm Comment: Biphasic T waves lead III Indications: Chest pain Medical History Medical History: Heart murmur, hypertension, hyperlipidemia, asthma, diabetes type I, obesity, CKD, d iabetic retinopathy, heart murmur Cardiac Medications: Pravastatin, lisinopril, levothyroxine, chlorthalidone, albuterol sulfate, insul in lispro, insuling degludec Allergies: Latex, natural rubber Cardiac Risk Factors: Hypertension, hyperlipidemia, asthma, diabetes type I, obesity, smoker (former) , PVD, family hx Previous Cardiac Procedures: None Pretest Chest Pain Characteristics: None Exercise History: Sedentary Physical Disabilities: None Lung Sounds: Clear to auscultation Heart Sounds: Murmur Stress Test Details Test: Exercise stress testing was performed using a Solomon protocol. Rest Stress HR Resting HR Supine: 67 bpm Max Heart Rate (APMHR): 163 bpm Resting HR Standin bpm Target HR (85% APMHR): 138 bpm Max HR Achieved: 125 bpm % of APMHR: 76 Recovery HR: 85 bpm HR response to stress: Normal HR response to stress BP Resting BP Supine: 124/60 mmHg Resting BP Standin/64 mmHg Max BP: 150/66 mmHg Recovery BP: 122/58 mmHg BP response to stress: Normal blood pressure response to stress. ECG Resting EC Ectopy: None Stress ECG: Sinus Tachycardia ST Change: Horizontal ST depression Lead(s): II, III, aVF, V4-V6 Stage: [address] Deviation: 0.5-1 mm Arrhythmia: None Recovery ECG: Sinus Rhythm Recovery ST Change: Horizontal ST depression, Downsloping ST depression Lead(s): II, III, aVF, V4-V6 Recovery ST Deviation: 1-2 mm Recovery Arrhythmia: Rare PAC, 4 beat run SVT Comment: ST depressions resolved by minute 12 recovery Clinical Reason for Termination: Fatigue Stress Symptoms: Chest tightness, General Fatigue, Dyspnea Exercise duration: 6 min09 sec Highest Stage Reached: Stage 3: 3.4 mph at 14% grade. Exercise capacity: 7.27 METs Angina Score: Non-Limiting Meza Treadmill Score: 0.5 Rate Pressure Product: [id number] Stress ECG Conclusion 1. Resting electrocardiogram showed minor nondiagnostic ST abnormalities 2. Patient exercised on the Solomon protocol and completed a workload of 7.27 METS 3. Normal hemodynamic response to exercise . Patient achieved 76% of maximal predicted heart rate fo r age 4. Electrocardiographic portion of the test was consistent with myocardial ischemia with downsloping ST depression in the inferior and anterolateral leads 5. There were no significant dysrhythmias Meza Treadmill Score is 0.5 which is Moderate risk. Stress Test Summary STAGE Time (mins) Speed (mph) Grade (%) HR BP SpO2 SYMPTOMS METS Supine 67 124/60 SpO2 98% Standing 69 118/64 SpO2 98% 1 3 1.7 10 117 128/54 SpO2 97% 4.5 2 6 2.5 12 121 140/64 SpO2 97% Mild SOB 7 3 9 3.4 14 122 SpO2 97% Chest tightness 4/10 10 1 min recovery 105 142/58 SpO2 98% Chest tightness 4/10 3 min recovery 88 148/70 SpO2 97% SOB resolved, chest tightness 4/10 6 min recovery 80 150/66 SpO2 98% Chest tightness resolved 9 min recovery 85 122/58 SpO2 98%
== END ==
PROVIDERS: PCP Nurse Practitioner Family; Visit Provider Nurse Practitioner
DX: R07.9 Chest pain, unspecified (principal)
CPT/HCPCS: 93017

== ENCOUNTER → 2022-03-21 01:27 | Outpatient (CLI) | payer OTHER, SELFPAY ==
--- NOTE | 2022-03-21 15:32 | DI.MAMMO_ITS ---
Exam(s) MAMMO SCREENING EXAM: MAMMO SCREENING CLINICAL HISTORY: screening,Z12.39. TECHNIQUE: Bilateral full field digital CC and MLO mammographic images were obtained with 3D tomosyn thesis and utilizing computer aided detection (CAD). COMPARISON: Prior mammograms were reviewed, the most recent being February 2021.. FINDINGS: There has been no significant change in the appearance and distribution of the fibroglandular tissue which is again noted be moderately dense. There are no new significant radiograph findings in left breast. In the right breast on 3D MLO imaging there is a subtle suggestion asymmetric density-possible nodule located 6 cm in from the nipple on the MLO view and measuring approximately 9 by 5 millimeters. Not previously evident. There are no malignant-appearing microcalcification groups in this region or el sewhere in either breast. There is no significant architectural distortion nor skin thickening-retraction. IMPRESSION: 1. Subtle suggestion of possible 9 x 5 millimeter nodular density in the right breast as seen on 3D MLO view. Spot compression view and ultrasound recommended. BI-RADS Category 0 - Assessment Incomplete: Need additional imaging evaluation Breast Density - Category C - Heterogeneously dense Breast density Category C or D implies that the patient has dense breast tissue. Dense breast tissue can make it harder to find cancer on a mammogram. Dense breast tissue is also associated with an incr eased risk of breast cancer. This information about the result of the mammogram report was provided to the patient to raise their awareness. Use this report when you speak with the patient about their risks for breast cancer, which includes their family history. At that time, you may recommend additional screening tests (Ultrasoun d or MRI) as these tests may add significant information. A negative radiographic report should not delay biopsy if a dominant or clinically suspicious mass is present. Up to ten percent of cancers are not identified on mammography. A negative report may reinforce clinical impression. Adenosis and dense breasts may obscure an underlying neoplasm. False positive reports average 6 to 10%. Patient will receive a letter notifying them of these results.
== END ==
PROVIDERS: PCP Nurse Practitioner Family; Visit Provider Nurse Practitioner
DX: Z12.31 Encounter for screening mammogram for malignant neoplasm of breast (principal); R92.8 Other abnormal and inconclusive findings on diagnostic imaging of breast
CPT/HCPCS: 77063; 77067

== ENCOUNTER → 2022-03-29 03:17 | Outpatient (CLI) | payer OTHER, SELFPAY ==
--- NOTE | 2022-03-29 | DI.MAMMO_ITS ---
Exam(s) MG MAMMO SCREEN CALL BACK UNI US BREAST RT COMPLETE EXAM: MG MAMMO SCREEN CALL BACK UNI- RIGHT AND COMPLETE RIGHT BREAST ULTRASOUND CLINICAL HISTORY: NODULAR DENSITY RT BREAST. TECHNIQUE: Unilateral spot mammographic images obtained with 3D tomosynthesisand utilizing computer aided detection (CAD). . Complete RIGHT breast Ultrasound was also performed, including all 4 quadrants, the retroareolar vargas on, and the ipsilateral axilla. COMPARISON: Prior mammograms were reviewed. This additional imaging was performed due to findings described on the recent screening mammogram of 03/21/2022. FINDINGS: DIAGNOSTIC RIGHT BREAST MAMMOGRAM: Additional mammographic views performed todayrender this area less concerning. The nodular density i s less visible on the spot compression 3D MLO view. COMPLETE RIGHT BREAST ULTRASOUND: Ultrasound performed today reveals no evidence of solid or significant cystic lesions in all 4 quadra nts nor in the retroareolar region. Scanning of the right axilla is negative for adenopathy. IMPRESSION: 1. No radiographic evidence of malignancy in the right breast. 2. Negative complete right breast ultrasound. Appropriate follow-up is repeat right breast mammogram in 6 months. The patient was informed of these findings and recommendations prior to leaving the department today. BI-RADS Category 3 - 6 month - Probably Benign Finding: Recommend follow-up mammography in 6 months Density: Breast density Category C or D implies that the patient has dense breast tissue. Dense breast tissue can make it harder to find cancer on a mammogram. Dense breast tissue is also associated with an incr eased risk of breast cancer. This information about the result of the mammogram report was provided to the patient to raise their awareness. Use this report when you speak with the patient about their risks for breast cancer, which includes their family history. At that time, you may recommend additional screening tests (Ultrasoun d or MRI) as these tests may add significant information. A negative radiographic report should not delay biopsy if a dominant or clinically suspicious mass is present. Up to ten percent of cancers are not identified on mammography. A negative report may reinforce clinical impression. Adenosis and dense breasts may obscure an underlying neoplasm. False positive reports average 6 to 10%. Patient will receive a letter notifying them of these results.
== END ==
PROVIDERS: PCP Nurse Practitioner Family; Visit Provider Nurse Practitioner
DX: Z12.31 Encounter for screening mammogram for malignant neoplasm of breast (principal); R92.8 Other abnormal and inconclusive findings on diagnostic imaging of breast
CPT/HCPCS: 76642; 77063; 77067

== ENCOUNTER 2022-05-15 07:53 | Outpatient (CLI) | payer OTHER, SELFPAY ==
--- NOTE | 2022-05-15 07:45 | RT.EKG_ITS ---
APPROVED REPORT Exam: Resting ECG Reason for Exam: Patient Location: O HR:78 bpm ECG Measurements Heart Rate 78 AXIS IL 156 P 7 QRSd 104 QRS 17 QT 382 T -4 QTc 436 Conclusion Sinus rhythm...normal P axis, V-rate 50- 99 Low voltage, precordial leads...precordial leads <1.0mV Borderline T abnormalities, inferior leads...T flat/neg, II III aVF
== END 2022-05-15 07:54 | disposition home or self-care (01) ==
LOC: DI.CARD 07:53
PROVIDERS: PCP Nurse Practitioner Family; Visit Provider Internal Medicine Cardiovascular Disease
DX: R07.9 Chest pain, unspecified (principal)
CPT/HCPCS: 93010

== ENCOUNTER 2022-05-17 13:27 | Outpatient (CLI) | payer OTHER, SELFPAY ==
[2022-05-17 13:44] LABS: Abs Immature Grans 0.03 10^3/uL (0.0-0.06); Absolute Basophil Count 0.06 10^3/uL (0.0-0.2); Absolute Eosinophil Count 0.37 10^3/uL (0.0-0.7); Absolute Lymphocyte Count 2.46 10^3/uL (1.2-3.4); Absolute Monocyte Count 0.75 10^3/uL (0.1-0.8); Absolute Neutrophil Count 7.53 10^3/uL (1.2-6.7); Basophils % 0.5; Eosinophils % 3.3; HCT 34.5 % (36.0-46.0); HGB 11.4 g/dL (11.2-15.7); Immature Grans % 0.3; MCH 28.4 pg (27.0-33.0); MCV 86 fL (80-95); MPV 9.7 fL (8.0-11.0); Monocytes % 6.7; Neutrophils % 67.2; Platelet Count 285 10^3/uL (130-400); RBC 4.02 10^6/uL (3.93-5.22); RDW 13.2 % (11.7-14.6); RDW-SD 41.1 fL
[2022-05-17 13:58] LABS: Hemoglobin A1C 6.8 % (<5.7)
[2022-05-17 14:02] LABS: INR 1.1 (0.9-1.1); PTT Activated 26.9 sec (21.0-27.5); Prothrombin Time 10.8 sec (9.3-11.0)
[2022-05-17 14:16] LABS: COMMENT (LAB VIEW ONLY) 88.39 mg/dL; Microalb ug/mg Crea 96.6 ug/mg Cr
[2022-05-17 14:18] LABS: Anion Gap 9.2 mmol/L (3-11); BUN 26 mg/dL (7-18); CO2 28.8 mmol/L (21.0-32.0); CREATININE 0.9 mg/dL (0.55-1.02); Calcium 9.6 mg/dL (8.5-10.1); Calculated LDL 97 mg/dL (<100); Chloride 103 mmol/L (98-107); Cholesterol 166 mg/dL (<200); Glucose 152 mg/dL (74-106); HDL Cholesterol 56 mg/dL (40-60); Potassium 4.1 mmol/L (3.5-5.1); Sodium 141 mmol/L (136-145); Triglyceride 69 mg/dL (<150)
[2022-05-18 13:14] LABS: Fructosamine 290 mcmol/L (200 - 285)
== END 2022-05-17 13:28 | disposition home or self-care (01) ==
LOC: LBO 13:27
PROVIDERS: PCP Nurse Practitioner Family; Visit Provider Internal Medicine Cardiovascular Disease
DX: R07.9 Chest pain, unspecified (principal); Z01.812 Encounter for preprocedural laboratory examination; E10.65 Type 1 diabetes mellitus with hyperglycemia; E78.00 Pure hypercholesterolemia, unspecified
CPT/HCPCS: 36415; 80048; 80051; 80061; 82947; 84520; 82043; 82565; 82570; 82985; 83036; 85025; 85610; 85730

== ENCOUNTER 2022-08-27 13:47 | Outpatient (RCR) | payer OTHER, SELFPAY | END 2022-08-28 23:59 | disposition home or self-care (01) | LOC: CR 13:47 | PROVIDERS: PCP Nurse Practitioner Family; Visit Provider Internal Medicine Cardiovascular Disease | DX: Z95.5 Presence of coronary angioplasty implant and graft (principal); Z51.89 Encounter for other specified aftercare | CPT/HCPCS: S9472 ==

== ENCOUNTER 2022-09-03 03:26 | Outpatient (CLI) | payer OTHER, SELFPAY ==
[2022-09-03 14:29] LABS: Hemoglobin A1C 6.6 % (<5.7)
[2022-09-03 14:52] LABS: Anion Gap 7.5 mmol/L (3-11); BUN 32 mg/dL (7-18); CO2 29.5 mmol/L (21.0-32.0); CREATININE 1.2 mg/dL (0.55-1.02); Calcium 9.3 mg/dL (8.5-10.1); Calculated LDL 38 mg/dL (<100); Chloride 104 mmol/L (98-107); Cholesterol 96 mg/dL (<200); Estimated GFR 52.47 (mL/min/1.73m2); Glucose 68 mg/dL (74-106); HDL Cholesterol 42 mg/dL (40-60); Potassium 4.2 mmol/L (3.5-5.1); Sodium 141 mmol/L (136-145); Triglyceride 82 mg/dL (<150)
[2022-09-03 14:58] LABS: COMMENT (LAB VIEW ONLY) 136.31 mg/dL; Microalb ug/mg Crea 38.7 ug/mg Cr
[2022-09-03 16:22] LABS: FREE T4 1.17 ng/dL (0.76-1.46); TSH 2.36 uIU/mL (0.36-3.74)
[2022-09-04 15:53] LABS: Fructosamine 261 mcmol/L (200 - 285)
== END 2022-09-03 03:27 | disposition home or self-care (01) ==
LOC: LBO 03:26
PROVIDERS: PCP Nurse Practitioner Family; Visit Provider Nurse Practitioner Family
DX: E03.9 Hypothyroidism, unspecified (principal); E11.9 Type 2 diabetes mellitus without complications; E78.5 Hyperlipidemia, unspecified; I10 Essential (primary) hypertension; I25.10 Atherosclerotic heart disease of native coronary artery without angina pectoris
CPT/HCPCS: 36415; 80048; 80061; 82043; 82570; 82985; 83036; 84439; 84443

== ENCOUNTER 2022-09-24 13:20 | Outpatient (RCR) | payer OTHER, SELFPAY | END 2022-09-25 23:59 | disposition home or self-care (01) | LOC: CR 13:20 | PROVIDERS: PCP Nurse Practitioner Family; Visit Provider Internal Medicine Cardiovascular Disease | DX: Z95.5 Presence of coronary angioplasty implant and graft (principal); Z51.89 Encounter for other specified aftercare | CPT/HCPCS: S9472 ==

== ENCOUNTER 2022-09-29 08:21 | Emergency (ER) | payer OTHER, SELFPAY ==
[2022-09-29 08:23] VITALS: BP 169/66; PULSE 85; RESP 18; TEMP 36.3; O2SAT 99
--- NOTE | 2022-09-29 08:56 | W.ED.GENAD ---
Discharge Plan Disposition Patient Disposition: Home Discharge Details Clinical Impression: Abscess, dental Primary Care Provider: Yelitza Mukherjee ED Provider: Bipin Aleman Home Meds and New Rx's Prescriptions: New amoxicillin-pot clavulanate 875-125 mg tablet 1 tab PO Q12H Qty: 14 0RF No Action albuterol sulfate 90 mcg/actuation HFA aerosol inhaler 2 inh IH Q6H PRN (Reason: shortness of breath or wheezing) Qty: 18 4RF cranberry conc-ascorbic acid 4,200-20 mg capsule 4 cap PO DAILY vitamin B complex [B Complex 1] tablet 1 tab PO DAILY multivitamin capsule 1 cap PO DAILY insulin degludec [Tresiba FlexTouch U-100] 100 unit/mL (3 mL) insulin pen 21 - 24 unit SC QHS Rx Instructions: 21 units on workdays and 24 units on nonwork days. metoprolol succinate 25 mg tablet extended release 24 hr 25 mg PO DAILY Qty: 90 3RF atorvastatin 40 mg tablet 40 mg PO DAILY ezetimibe 10 mg tablet 10 mg PO DAILY insulin lispro [Humalog KwikPen Insulin] 100 unit/mL insulin pen See Rx Instructions subcut AC Qty: 4 4RF Dose Instruction: subcut AC; 6-8 units at meal time Rx Instructions: 1unit/40gm of carb before meals chlorthalidone 25 mg tablet 25 mg PO DAILY Qty: 90 4RF Rx Instructions: Take 1 tab daily fluticasone propionate [Flovent HFA] 110 mcg/actuation HFA aerosol inhaler 1 inh inhalation BID Qty: 12 4RF lisinopril 40 mg tablet 40 mg PO DAILY Qty: 90 4RF (DME) Dexcom G6 Transmitter Device See Rx Instructions .ROUTE .MEDSUPPLY Qty: 1 4RF Rx Instructions: Continuous glucose monitor (DME) Dexcom G6 Sensor Device See Rx Instructions .ROUTE .MEDSUPPLY Qty: 3 4RF Rx Instructions: Continuous glucose monitor nitroglycerin 0.3 mg tablet, sublingual 0.3 mg sublingual Q5M PRN (Reason: chest pain) Qty: 10 3RF Rx Instructions: do not exceed 3 doses per episode clopidogrel [Plavix] 75 mg tablet 75 mg PO DAILY Rx Instructions: 1 tab daily x 6-12 mo aspirin [Adult Aspirin Regimen] 81 mg tablet,delayed release (DR/EC) 81 mg PO DAILY levothyroxine 175 mcg tablet 175 mcg PO DAILY Qty: 90 3RF ibuprofen [IBU] 800 mg tablet 800 mg PO Q8H PRNQty: 30 0RF Discharge Instructions Instructions: Dental Abscess (ED) Additional Instructions: You may continue to take [id number] acetaminophen, apply warm compresses, and swish and spit with salt water. Please take antibiotic as prescribed and until all the antibiotic is gone. It is also very important that you follow-up with a dental provider for definitive care of your dental infection and tooth ache. If you develop any new or significant worsening of symptoms return to the emergency department immediately for reassessment Referrals: [facility] [Provider Group] - 3 days Medical Decision Making Patient presenting to the emergency department for chief complaint of dental pain and facial swelling. She states she has had a tooth ache for the past couple days but then this morning woke up with facial swelling. She has not been to a dentist in years and does state significant tooth decay. Physical exam is consistent with dental abscess and swelling to the right lower jaw surrounding tooth #28. no signs of deep neck space infection ( Retropharyngeal abscess, Mike's angina, Parapharyngeal space infection, Peritonsillar Abscess (VACUUM CASTER)) or Epiglottitis. Pt non toxic and stable. Did discuss with patient risk versus benefit of needle drainage of dental abscess. After full discussion patient was agreeable to attempt needle drainage. Please see procedure note. Very scant amount of drainage was able to be expressed. Patient placed upon Augmentin and follow-up with [facility]. After discussion of diagnosis and plan of care patient has no further needs, questions, or concerns and states clear understanding to return to the emergency department for any worsening symptoms. This documentation was generated using [employer] dictation system, please disregard any oddities of phrase or misspellings. HPI General Mode of arrival: ambulatory. Date/Time Provider Initiated Documentation: 09/29/22 08:22. Limitations to Documentation: no limitations. Information obtained by: patient and RN notes reviewed. History of Present Illness 57 year old F presents to the emergency department with the chief complaint of Tooth ache and facial swelling, described as moderate, with intensity rated at 8. Quality is described as aching, and is localized to the face. Patient reports no radiation. Patient started experiencing this day(s) (2) and it has been constant. No relieving factors improve symptom(s), No exacerbating factors reported . Patient notes no other symptoms.. Patient did receive the following treatments prior to arrival, none Related Data Home Medications Medication Instructions Recorded Confirmed multivitamin 1 cap PO DAILY 09/25/18 08/24/22 vitamin B complex (B Complex 1 1 tab PO DAILY 09/25/18 08/24/22 tablet) albuterol sulfate 90 mcg/actuation 2 inh inhalation Q6H PRN shortness 01/07/20 08/24/22 aerosol inhaler of breath or wheezing #18 grams insulin lispro 100 unit/mL See Rx Instructions subcut AC #4 08/11/20 08/24/22 subcutaneous pen (Humalog KwikPen SYRGS (U-100) Insulin) cranberry concentrate-ascorbic 4 cap PO DAILY 01/27/21 08/24/22 acid 4,200 mg-20 mg capsule ibuprofen 800 mg tablet (IBU) 800 mg PO Q8H PRN #30 tabs 03/23/21 08/24/22 chlorthalidone 25 mg tablet 25 mg PO DAILY #90 tabs 12/05/21 08/24/22 fluticasone propionate 110 1 inh inhalation BID #12 grams 12/19/21 08/24/22 mcg/actuation HFA aerosol inhaler (Flovent HFA) lisinopril 40 mg tablet 40 mg PO DAILY #90 tab-caps 12/19/21 08/24/22 blood-glucose transmitter (Dexcom #1 ea 02/05/22 08/24/22 G6 Transmitter device) blood-glucose sensor (Dexcom G6 #3 ea 02/16/22 08/24/22 Sensor device) metoprolol succinate 25 mg 25 mg PO DAILY #90 tabs 05/15/22 08/24/22 tablet,extended release 24 hr nitroglycerin 0.3 mg sublingual 0.3 mg sublingual Q5M PRN chest 06/14/22 08/24/22 tablet pain #10 tabs aspirin 81 mg tablet,delayed 81 mg PO DAILY 08/09/22 08/24/22 release (Adult Aspirin Regimen) clopidogrel 75 mg tablet (Plavix) 75 mg PO DAILY 08/09/22 08/24/22 atorvastatin 40 mg tablet 40 mg PO DAILY 08/21/22 08/24/22 ezetimibe 10 mg tablet 10 mg PO DAILY 08/21/22 08/24/22 insulin degludec 100 unit/mL (3 21 - 24 unit subcut QHS 08/24/22 08/24/22 mL) subcutaneous pen (Tresiba FlexTouch U-100 insulin) levothyroxine 175 mcg tablet 175 mcg PO DAILY #90 tab-caps 09/24/22 amoxicillin 875 mg-potassium 1 tab PO Q12H #14 tabs 09/29/22 clavulanate 125 mg tablet Previous Rx's Medication Instructions Recorded albuterol sulfate 90 mcg/actuation 2 inh inhalation Q6H PRN shortness 01/07/20 aerosol inhaler of breath or wheezing #18 grams insulin lispro 100 unit/mL See Rx Instructions subcut AC #4 08/11/20 subcutaneous pen (Humalog KwikPen SYRGS (U-100) Insulin) ibuprofen 800 mg tablet (IBU) 800 mg PO Q8H PRN #30 tabs 03/23/21 chlorthalidone 25 mg tablet 25 mg PO DAILY #90 tabs 12/05/21 fluticasone propionate 110 1 inh inhalation BID #12 grams 12/19/21 mcg/actuation HFA aerosol inhaler (Flovent HFA) lisinopril 40 mg tablet 40 mg PO DAILY #90 tab-caps 12/19/21 blood-glucose transmitter (Dexcom #1 ea 02/05/22 G6 Transmitter device) blood-glucose sensor (Dexcom G6 #3 ea 02/16/22 Sensor device) metoprolol succinate 25 mg 25 mg PO DAILY #90 tabs 05/15/22 tablet,extended release 24 hr nitroglycerin 0.3 mg sublingual 0.3 mg sublingual Q5M PRN chest 06/14/22 tablet pain #10 tabs levothyroxine 175 mcg tablet 175 mcg PO DAILY #90 tab-caps 09/24/22 amoxicillin 875 mg-potassium 1 tab PO Q12H #14 tabs 09/29/22 clavulanate 125 mg tablet Allergies Allergy/AdvReac Type Severity Reaction Status Date / Time Latex, Natural Rubber Allergy Unknown Skin Rash Verified 09/29/22 08:26 General Stated Complaint: DentalOral CHRISTINE: 4 Review of Systems Constitutional Constitutional: Denies chills and Denies fever(s) ENT Ears, Nose, Mouth, and Throat: Reports as per HPI, Denies change in voice, Reports dental pain, Denies dysphagia, Denies throat swelling and Denies tongue swelling Cardiovascular Cardiovascular: Denies chest pain and Denies dyspnea Respiratory Respiratory: Denies dyspnea, Denies stridor and Denies wheezing Gastrointestinal Gastrointestinal: Denies abdominal pain, Denies dysphagia, Denies nausea and Denies vomiting Integumentary/Breasts Skin/Breast: Denies rash Allergic/Immunologic Allergic/Immunologic: Denies throat swelling, Denies tongue swelling and Denies wheezing PFSH All Active Problems Abscess, dental (Acute) Coronary artery disease (Chronic) S/p TEREAZ to mid 2 LAD and mid RCA Chronic kidney disease (CKD) stage G2/A2, mildly decreased glomerular filtration rate (GFR) between 60-89 mL/min/1.73 square meter and albuminuria creatinine ratio between 30-299 mg/g (Chronic) Type 1 diabetes mellitus with diabetic retinopathy (Chronic) 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) Hypothyroidism (Chronic) Essential hypertension (Chronic) Hyperlipidemia (Chronic) Asthma (Chronic) Medical History COVID-19 Cyst (solitary) of breast Left MRSA elsewhere/NOS Postmenopausal vaginal bleeding --Endocervical polyp and thickened endometrium s/p negative endometrial biopsy 04/17 --Recurrence 2020 s/p D&C, pathology benign Surgical History History of bilateral tubal ligation (05/30/95) History of section (08/31/86) 08/31/86; 05/30/95 History of left cataract surgery (10/13/13) History of right cataract surgery (10/27/13) S/P arthroscopy of right shoulder (07/08/20) With decompression, biceps tenodesisis, labral debridement at [facility] S/P coronary artery stent placement (07/13/22) TEREZA to LAD and RCA S/P dilatation and curettage (~03/23/21) Family History Mother Essential hypertension Hyperlipidemia Asthma Father , at 53 of prostate cancer Substance abuse Alcohol abuse Prostate cancer Sister Asthma Depression Brother Asthma Emphysema of lung Brother No problems noted. Brother Emphysema of lung Son No problems noted. Son Depression Maternal Grandfather , of [place] in his 50s Heart disease Myocardial infarction Hyperlipidemia Stroke Maternal Grandmother Leukemia Paternal Grandfather Myocardial infarction Heart disease Alzheimer disease Paternal Grandmother Neoplasm Unknown type, female cancer Stroke Social History Smoking/Tobacco Use Status: Former Tobacco Use tobacco type: cigarettes Quit Date: 07/29/15 Tobacco: How many years used: 38 Second Hand Exposure: Yes Smoking risk assessment performed?: Yes Alcohol Intake: never Drug use: Rarely Substance use type: marijuana Details: last used marijuana over a year ago Caregiver/Support person: No Household members: spouse and children Housing: house Communication Needs: None Do you need help understanding health information?: Never 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 [employer] Pets and animals: Yes Pets and animals: cat(s) and dog(s) Sexually active: Yes Do you think of yourself as: straight/heterosexual Current gender identity: female What is your relationship status?: How often do you talk on the phone with friends or family?: decline to answer How often do you get together with friends or relatives?: once per week How often do you attend jew or jain services?: decline to answer Do you belong to any clubs or organized social groups?: no Panel score (0-1 are the most socially isolated patients): 1 What type of physical activity do you participate in: none Lilia/Pentecostalism: No preference Special lilia needs: No Seatbelt use: always Helmet use: Yes Helmet use: always Drive intox or ride w/intox operator and truck driver: No Do you feel safe at home: Yes Do you feel safe in your relationship?: Yes Female Reproductive History Menstrual Menopause type: natural History History 2 Para 2 Hx # Term Pregnancies Multiple births Hx # Pregnancies Ectopic pregnancies AB induced Hx Number of Living Children 2 AB spontaneous Exam Const General: cooperative Orientation: alert, awake and oriented x3 Limitations: mental status not altered HENMT Head: normal to inspection, normocephalic and atraumatic Ears: hearing grossly normal bilaterally, TM's normal bilaterally, normal mastoids bilaterally and no periauricular adenopathy General nose exam: external nose normal Face and sinus: edema on the right mandible Mouth: oropharynx normal, no drooling, no muffled voice, normal tongue and no trismus Teeth and gingiva: abnormal tooth or associated gingiva lower right second bicuspid tender, with associated gingival edema and with associated gingival fluctuance, caries and poor dentition Throat: posterior oropharynx normal, tonsils normal and uvula midline Eyes General: appearance normal, both eyes and all related structures Pupils: PERRL Neck Neck: normal visual inspection, full ROM, no lymphadenopathy, no meningeal signs, trachea midline, supple, no anterior neck swelling and no midline deformity Resp Effort & Inspection: normal respiratory effort and able to speak in complete sentences Course Vital Signs Vital signs: Vital Signs Temperature 36.3 C L 09/29/22 08:23 Pulse 85 09/29/22 08:23 Respiratory Rate 18 09/29/22 08:23 Blood Pressure 169/66 H 09/29/22 08:23 Pulse Oximetry 99 09/29/22 08:23 Temperature 36.3 C L 09/29/22 08:23 Temperature Source Tympanic 09/29/22 08:23 Pulse 85 09/29/22 08:23 Respiratory Rate 18 09/29/22 08:23 Respiratory Effort Normal, Non-Labored 09/29/22 08:25 Blood Pressure 169/66 H 09/29/22 08:23 Pulse Oximetry 99 09/29/22 08:23 Oxygen Delivery Method Venti Mask 09/29/22 08:23 Procedures Abscess I/D Site: Other (Mouth) Side (if applicable): Right Local Anesthetic: Lidocaine 1% and Bupivicaine 0.5% Amount of anesthesia used (mL): 5 Technique: Needle Aspiration Irrigation: No Packing used?: None Complications: Bleeding
[2022-09-29] MEDS: Amox. 875/Clav. 125, 2 TABS/BTL 1 TAB PO (09:05)
[2022-09-29] MEDS: Amoxicillin 875/Clav. 125 TAB PO (09:05)
--- NOTE | 2022-09-29 09:20 | NUR.NOTE ---
Nursing Note: Referral given to Care Management for needs a dentist for dental abscess, next week. Noted [facility]
== END 2022-09-29 09:07 | disposition home or self-care (01) ==
PROVIDERS: Emergency Provider Nurse Practitioner Family; PCP Nurse Practitioner Family
DX: K04.7 Periapical abscess without sinus (principal); K12.2 Cellulitis and abscess of mouth
CPT/HCPCS: 10160

== ENCOUNTER 2022-10-01 01:52 | Outpatient (CLI) | payer OTHER, SELFPAY ==
--- NOTE | 2022-10-01 07:45 | DI.MAMMO_ITS ---
Exam(s) MG MAMMO DIAGNOSTIC UNI EXAM: MAMMO DIAGNOSTIC UNI CLINICAL HISTORY: f/u prev mammo,r92.8,6 mo f/u,,nodular density TECHNIQUE: Right cc and MLO mammogram images were performed according to the usual protocol includ ing computer analysis with CAD system, tomosynthesis and C-view imaging. COMPARISON: 2014 through 2021 FINDINGS: The right breast is composed of scattered fibroglandular densities, Breast Density category B. No suspicious masses or suspicious microcalcifications are seen. No skin thickening or abnormal axillary lymph nodes are seen. IMPRESSION: BI-RADS Category 1, Negative mammogram Yearly screening mammography is recommended which would be due in 6 months.. Breast Density - Category B, scattered fibroglandular densities. A negative radiographic report should not delay biopsy if a dominant or clinically suspicious mass is present. Up to ten percent of cancers are not identified on mammography. A negative report may reinforce clinical impression. Adenosis and dense breasts may obscure an underlying neoplasm. False positive reports average 6 to 10%. Patient will receive a letter notifying them of these results.
== END 2022-10-01 02:12 ==
LOC: DI 01:52
PROVIDERS: PCP Nurse Practitioner Family; Visit Provider Family Medicine
DX: R92.8 Other abnormal and inconclusive findings on diagnostic imaging of breast (principal); N60.81 Other benign mammary dysplasias of right breast
CPT/HCPCS: 77061; 77065; G0279

== ENCOUNTER 2022-10-26 13:11 | Outpatient (RCR) | payer OTHER, SELFPAY | END 2022-10-26 23:59 | disposition home or self-care (01) | LOC: CR 13:11 | PROVIDERS: PCP Nurse Practitioner Family; Visit Provider Internal Medicine Cardiovascular Disease | DX: I25.10 Atherosclerotic heart disease of native coronary artery without angina pectoris (principal) | CPT/HCPCS: S9472 ==

== ENCOUNTER 2022-11-16 13:34 | Outpatient (RCR) | payer OTHER, SELFPAY | END 2022-11-25 23:59 | disposition home or self-care (01) | LOC: CR 13:34 | PROVIDERS: PCP Nurse Practitioner Family; Visit Provider Internal Medicine Cardiovascular Disease | DX: Z95.2 Presence of prosthetic heart valve (principal); Z51.89 Encounter for other specified aftercare | CPT/HCPCS: S9472 ==

== ENCOUNTER 2022-11-27 16:19 | Outpatient (CLI) | payer OTHER, SELFPAY ==
[2022-11-27 16:13] LABS: Hemoglobin A1C 6.8 % (<5.7)
[2022-11-27 16:32] LABS: Anion Gap 9.2 mmol/L (3-11); BUN 38 mg/dL (7-18); CO2 25.8 mmol/L (21.0-32.0); CREATININE 1.1 mg/dL (0.55-1.02); Calcium 9.6 mg/dL (8.5-10.1); Chloride 108 mmol/L (98-107); Estimated GFR 58.24 (mL/min/1.73m2); Glucose 87 mg/dL (74-106); Potassium 4.3 mmol/L (3.5-5.1); Sodium 143 mmol/L (136-145)
[2022-11-27 16:34] LABS: COMMENT (LAB VIEW ONLY) 130.34 mg/dL
== END 2022-11-27 16:20 | disposition home or self-care (01) ==
PROVIDERS: PCP Nurse Practitioner Family; Visit Provider Internal Medicine Endocrinology, Diabetes & Metabolism
DX: E10.65 Type 1 diabetes mellitus with hyperglycemia (principal)
CPT/HCPCS: 36415; 80048; 82043; 82570; 83036

== ENCOUNTER 2022-12-25 14:03 | Outpatient (RCR) | payer SELFPAY ==
[2022-11-27 14:39] VITALS: BP 122/58; PULSE 72
[2022-12-04 14:27] VITALS: BP 109/52; PULSE 58
[2022-12-06 14:15] VITALS: BP 101/49; PULSE 82
[2022-12-13 14:47] VITALS: BP 115/60; PULSE 86
[2022-12-18 14:14] VITALS: BP 98/54; PULSE 78
[2022-12-20 14:02] VITALS: BP 113/52; PULSE 72
[2022-12-25 14:09] VITALS: BP 107/47; PULSE 76
== END 2022-12-26 23:59 | disposition home or self-care (01) ==
LOC: CR 14:03
PROVIDERS: PCP Nurse Practitioner Family; Visit Provider Internal Medicine Cardiovascular Disease

== ENCOUNTER 2023-01-24 14:07 | Outpatient (RCR) | payer SELFPAY ==
[2022-12-27 00:03] VITALS: BP 107/47; PULSE 76
[2023-01-01 14:58] VITALS: BP 95/50; PULSE 78
[2023-01-03 14:30] VITALS: BP 146/59; PULSE 74
[2023-01-08 14:21] VITALS: BP 108/49; PULSE 78
[2023-01-22 14:11] VITALS: BP 108/51; PULSE 72
[2023-01-24 13:51] VITALS: BP 129/57; PULSE 79
== END 2023-01-25 23:59 | disposition home or self-care (01) ==
LOC: CR 14:07
PROVIDERS: PCP Nurse Practitioner Family; Visit Provider Internal Medicine Cardiovascular Disease
DX: R69 Illness, unspecified (principal)

== ENCOUNTER 2023-02-07 13:37 | Outpatient (REF) | payer OTHER, SELFPAY ==
--- NOTE | 2023-02-07 13:10 | PAPFT_PTH ---
PATIENT: Zara Strong LOC: [facility] U#:[id number] AGE/SX: 57/F ROOM: RE02/07/[address]: Kendra Negron DO : 1965 BED: DIS: 02/07/2023 SPEC #: [id number] RECD: 02/07/23 14:33 STATUS: KINJAL REQ #: [id number] [place]: 02/07/23 13:[address]: Kendra Negron DEPT: [facility] Cytology RECD BY: Keeley Raza ENTERED: 02/07/23 14:33 SP TYPE: PAPFT OTHR DR: Yelitza Mukherjee, ROUTE SALESMAN AND DRIVER Tissues: 1 - CX/ENDOCX FOR PAP SMEARS Procedures: PAP THIN PREP/UVM Screening HPV DNA PROBE Comments: [id number]
== END 2023-02-07 13:38 | disposition home or self-care (01) ==
LOC: LBN 13:37
PROVIDERS: PCP Nurse Practitioner Family; Visit Provider Obstetrics & Gynecology
DX: Z12.4 Encounter for screening for malignant neoplasm of cervix (principal); Z11.51 Encounter for screening for human papillomavirus (HPV)
CPT/HCPCS: 88142; 87624

== ENCOUNTER 2023-02-21 15:37 | Outpatient (RCR) | payer SELFPAY ==
[2023-01-26 00:02] VITALS: BP 129/57; PULSE 79
[2023-01-31 14:10] VITALS: BP 102/48; PULSE 79
[2023-02-07 14:19] VITALS: BP 122/50; PULSE 66
[2023-02-12 13:58] VITALS: BP 114/54; PULSE 67
[2023-02-19 14:11] VITALS: BP 115/53; PULSE 67
[2023-02-21 15:42] VITALS: BP 138/69; PULSE 81
== END 2023-02-25 23:59 | disposition home or self-care (01) ==
LOC: CR 15:37
PROVIDERS: PCP Nurse Practitioner Family; Visit Provider Internal Medicine Cardiovascular Disease
DX: R69 Illness, unspecified (principal)

== ENCOUNTER 2023-02-28 15:05 | Outpatient (REF) | payer OTHER, SELFPAY ==
--- NOTE | 2023-02-28 15:30 | ENDOMET_PTH ---
PATIENT: Zara Strong LOC: [facility] U#:[id number] AGE/SX: 57/F ROOM: RE02/28/[address]: Kendra Negron DO : 1965 BED: DIS: 02/28/2023 SPEC #: [id number] RECD: 02/28/23 15:55 STATUS: SOUT REQ #: [id number] [place]: 02/28/23 15:[address]: Kendra Negron DEPT: Surgical Specimen RECD BY: Sully Venegas ENTERED: 02/28/23 15:56 SP TYPE: Endomet OTHR DR: RAKAN Gaxiola Tissues: 1 - ENDOMETRIUM BX/JESSICAETTE Procedures: GROSS AND MICRO LEVEL 4 Comments: [id number]
== END 2023-02-28 15:06 | disposition home or self-care (01) ==
LOC: LBN 15:05
PROVIDERS: PCP Nurse Practitioner Family; Visit Provider Obstetrics & Gynecology
DX: N84.0 Polyp of corpus uteri (principal); N95.0 Postmenopausal bleeding
CPT/HCPCS: 88305

== ENCOUNTER 2023-03-05 16:12 | Outpatient (CLI) | payer OTHER, SELFPAY ==
[2023-03-05 16:37] LABS: Anion Gap 7.7 mmol/L (3-11); BUN 33 mg/dL (7-18); CO2 26.3 mmol/L (21.0-32.0); CREATININE 1.1 mg/dL (0.55-1.02); Calcium 9.6 mg/dL (8.5-10.1); Chloride 105 mmol/L (98-107); Estimated GFR 58.24 (mL/min/1.73m2); Glucose 93 mg/dL (74-106); Potassium 5.4 mmol/L (3.5-5.1); Sodium 139 mmol/L (136-145); TSH 0.02 uIU/mL (0.36-3.74)
[2023-03-05 16:44] LABS: Hemoglobin A1C 6.7 % (<5.7)
== END 2023-03-05 16:13 | disposition home or self-care (01) ==
LOC: LBO 16:13
PROVIDERS: PCP Nurse Practitioner Family; Visit Provider Internal Medicine Endocrinology, Diabetes & Metabolism
DX: E11.65 Type 2 diabetes mellitus with hyperglycemia (principal); E03.9 Hypothyroidism, unspecified
CPT/HCPCS: 36415; 80048; 83036; 84443

== ENCOUNTER 2023-03-26 14:14 | Outpatient (RCR) | payer SELFPAY ==
[2023-02-26 00:02] VITALS: BP 138/69; PULSE 81
[2023-02-26 14:35] VITALS: BP 100/58; PULSE 81
[2023-03-05 15:05] VITALS: BP 110/52; PULSE 71
[2023-03-19 14:25] VITALS: BP 119/55; PULSE 70
[2023-03-21 14:22] VITALS: BP 114/59; PULSE 77
[2023-03-26 14:24] VITALS: BP 116/56; PULSE 77
== END 2023-03-28 23:59 | disposition home or self-care (01) ==
LOC: CR 14:14
PROVIDERS: PCP Nurse Practitioner Family; Visit Provider Internal Medicine Cardiovascular Disease
DX: R69 Illness, unspecified (principal)

== ENCOUNTER 2023-04-25 14:51 | Outpatient (RCR) | payer SELFPAY ==
[2023-03-29 00:13] VITALS: BP 116/56; PULSE 77
[2023-04-09 14:12] VITALS: BP 117/60; PULSE 82
[2023-04-16 14:00] VITALS: BP 104/52; PULSE 74
[2023-04-18 14:08] VITALS: BP 112/51; PULSE 73
[2023-04-25 14:52] VITALS: BP 126/54; PULSE 64
== END 2023-04-27 23:59 | disposition home or self-care (01) ==
LOC: CR 14:51
PROVIDERS: PCP Nurse Practitioner Family; Visit Provider Internal Medicine Cardiovascular Disease
DX: R69 Illness, unspecified (principal)

== ENCOUNTER 2023-05-07 19:37 | Outpatient (CLI) | payer OTHER, SELFPAY ==
[2023-05-07 16:04] LABS: Anion Gap 6.9 mmol/L (3-11); BUN 27 mg/dL (7-18); CO2 27.1 mmol/L (21.0-32.0); CREATININE 1.1 mg/dL (0.55-1.02); Calcium 9.7 mg/dL (8.5-10.1); Chloride 105 mmol/L (98-107); Estimated GFR 57.88 (mL/min/1.73m2); FREE T4 1.47 ng/dL (0.76-1.46); Potassium 4.7 mmol/L (3.5-5.1); Sodium 139 mmol/L (136-145); TSH 0.08 uIU/mL (0.36-3.74)
[2023-05-07 16:28] LABS: Glucose 46 mg/dL (74-106)
== END 2023-05-07 19:38 | disposition home or self-care (01) ==
LOC: LBO 19:37
PROVIDERS: PCP Nurse Practitioner Family; Visit Provider Internal Medicine Endocrinology, Diabetes & Metabolism
DX: E10.65 Type 1 diabetes mellitus with hyperglycemia (principal); E03.9 Hypothyroidism, unspecified
CPT/HCPCS: 36415; 80048; 84439; 84443

== ENCOUNTER 2023-05-28 14:08 | Outpatient (RCR) | payer SELFPAY ==
[2023-04-28 00:05] VITALS: BP 126/54; PULSE 64
[2023-05-02 14:15] VITALS: BP 114/54; PULSE 68
[2023-05-07 14:19] VITALS: BP 128/55; PULSE 59
[2023-05-09 14:18] VITALS: BP 108/48; PULSE 66
[2023-05-14 14:10] VITALS: BP 119/57; PULSE 79
[2023-05-16 14:49] VITALS: BP 113/55
[2023-05-28 14:26] VITALS: BP 129/59; PULSE 80
[2023-05-30 14:19] VITALS: BP 125/59; PULSE 75
== END 2023-05-28 23:59 | disposition home or self-care (01) ==
LOC: CR 14:08
PROVIDERS: PCP Nurse Practitioner Family; Visit Provider Internal Medicine Cardiovascular Disease
DX: R69 Illness, unspecified (principal)

== ENCOUNTER → 2023-06-06 00:54 | Outpatient (CLI) | payer OTHER, SELFPAY ==
--- NOTE | 2023-06-06 14:57 | DI.DEXA_ITS ---
Exam(s) XR DEXA BONE DENSITY W/WO PRATIK EXAM: XR DEXA BONE DENSITY W/WO PRATIK CLINICAL HISTORY: osteoporosis screening Z78.0 POSTMANOPAUSAL TECHNIQUE: Routine DEXA evaluation of the lumbar spine, hip, or forearm. COMPARISON: No exams were available for comparison FINDINGS: Performed on a Hologic unit. Lateral image: No compression fracture evident. Lumbar Spine total T-score: 1.4 Hip total T-score:0.9 Independent reading at the level of the femoral neck yields T-score of 0.7 Forearm total T-score: 0.1 IMPRESSION: Bone mineral density measures in the normal range. Fracture risk is low. Note: Any spine fracture indicates 5x risk for subsequent spine fracture and 2x risk for subsequent h ip fracture. World Health Organization criteria for BMD interpretation classify patients: Normal...... T- Score at or above -1.0 Osteopenic... T- Score between -1.0 and -2.5 Osteoporosis... T-Score at or below -2.5
--- NOTE | 2023-06-06 14:57 | DI.MAMMO_ITS ---
Exam(s) MAMMO SCREENING EXAM: MAMMO SCREENING CLINICAL HISTORY: SCREENING FOR BREAST CANCER Z12.39. TECHNIQUE: Bilateral full field digital CC and MLO mammographic images were obtained with 3D tomosyn thesis and utilizing computer aided detection (CAD). COMPARISON: Prior mammograms were reviewed. FINDINGS: The fibroglandular tissue pattern is again noted be moderately dense. There are no new spiculated masses nor malignant appearing microcalcification groups. There is no significant architectural distortion nor skin thickening-retraction. IMPRESSION: No radiographic evidence of malignancy. BI-RADS Category 1 - Negative Breast Density - Category C - Heterogeneously dense Breast density Category C or D implies that the patient has dense breast tissue. Dense breast tissue can make it harder to find cancer on a mammogram. Dense breast tissue is also associated with an incr eased risk of breast cancer. This information about the result of the mammogram report was provided to the patient to raise their awareness. Use this report when you speak with the patient about their risks for breast cancer, which includes their family history. At that time, you may recommend additional screening tests (Ultrasoun d or MRI) as these tests may add significant information. A negative radiographic report should not delay biopsy if a dominant or clinically suspicious mass is present. Up to ten percent of cancers are not identified on mammography. A negative report may reinforce clinical impression. Adenosis and dense breasts may obscure an underlying neoplasm. False positive reports average 6 to 10%. Patient will receive a letter notifying them of these results.
== END ==
PROVIDERS: PCP Nurse Practitioner Family; Visit Provider Nurse Practitioner Family
DX: Z12.31 Encounter for screening mammogram for malignant neoplasm of breast (principal); Z13.820 Encounter for screening for osteoporosis; Z78.0 Asymptomatic menopausal state
CPT/HCPCS: 77063; 77067; 77080

== ENCOUNTER 2023-06-13 14:00 | Outpatient (RCR) | payer SELFPAY ==
[2023-05-29 00:05] VITALS: BP 126/54; PULSE 64
[2023-06-06 13:56] VITALS: BP 126/51; PULSE 69
[2023-06-13 14:06] VITALS: BP 126/58; PULSE 71
== END 2023-06-27 23:59 | disposition home or self-care (01) ==
LOC: CR 14:00
PROVIDERS: PCP Nurse Practitioner Family; Visit Provider Internal Medicine Cardiovascular Disease
DX: R69 Illness, unspecified (principal)

== ENCOUNTER 2023-06-18 15:10 | Outpatient (CLI) | payer OTHER, SELFPAY ==
[2023-06-18 14:49] LABS: Hemoglobin A1C 7.1 % (<5.7)
[2023-06-18 14:57] LABS: COMMENT (LAB VIEW ONLY) 123.17 mg/dL; Microalb ug/mg Crea 30.6 ug/mg Cr
[2023-06-18 14:59] LABS: ALT 41 U/L (14-59); AST 26 U/L (15-37); Albumin 3.8 g/dL (3.4-5.0); Alkaline Phosphatase 116 U/L (46-116); Anion Gap 3.2 mmol/L (3-11); BUN 29 mg/dL (7-18); Bilirubin, Total 0.4 mg/dL (0.2-1.0); CO2 29.8 mmol/L (21.0-32.0); CREATININE 1.1 mg/dL (0.55-1.02); Calcium 9.7 mg/dL (8.5-10.1); Chloride 106 mmol/L (98-107); Estimated GFR 57.88 (mL/min/1.73m2); Glucose 231 mg/dL (74-106); Potassium 4.1 mmol/L (3.5-5.1); Sodium 139 mmol/L (136-145); TSH 0.17 uIU/mL (0.36-3.74); Total Protein 7.4 g/dL (6.4-8.2)
[2023-06-21 13:48] LABS: Fructosamine 297 mcmol/L (200 - 285)
== END 2023-06-18 15:11 | disposition home or self-care (01) ==
LOC: LBO 15:10
PROVIDERS: PCP Nurse Practitioner Family; Visit Provider Internal Medicine Endocrinology, Diabetes & Metabolism
DX: E10.29 Type 1 diabetes mellitus with other diabetic kidney complication; E03.9 Hypothyroidism, unspecified
CPT/HCPCS: 36415; 80053; 82043; 82570; 82985; 83036; 84443

== ENCOUNTER 2023-07-25 14:00 | Outpatient (RCR) | payer SELFPAY ==
[2023-06-28 00:04] VITALS: BP 126/54; PULSE 64
[2023-07-25 14:02] VITALS: BP 128/56; PULSE 66
== END 2023-07-28 23:59 | disposition home or self-care (01) ==
LOC: CR 14:00
PROVIDERS: PCP Nurse Practitioner Family; Visit Provider Internal Medicine Cardiovascular Disease
DX: R69 Illness, unspecified (principal)

== ENCOUNTER 2023-08-19 07:38 | Emergency (ER) | payer OTHER, SELFPAY ==
[2023-08-19] VITALS (38 sets, daily range): BP systolic 135–162; BP diastolic 45–78; PULSE 70–118; RESP 14–18; TEMP 36.8; O2SAT 94–99
--- NOTE | 2023-08-19 08:19 | W.ED.GENAD ---
HPI General Mode of arrival: ambulatory. Date/Time Provider Initiated Documentation: 08/19/23 07:59. Limitations to Documentation: no limitations. Information obtained by: patient and RN notes reviewed. History of Present Illness 58 year old F presents to the emergency department with the chief complaint of Nausea vomiting diarrhea, described as moderate and severe, Patient started experiencing this day(s) (5) and it has been constant. No relieving factors improve symptom(s), No exacerbating factors reported . Patient did receive the following treatments prior to arrival, none Related Data Home Medications Medication Instructions Recorded Confirmed multivitamin 1 cap PO DAILY 09/25/18 08/19/23 vitamin B complex (B Complex 1 1 tab PO DAILY 09/25/18 08/19/23 tablet) albuterol sulfate 90 mcg/actuation 2 inh inhalation Q6H PRN shortness 01/07/20 08/19/23 aerosol inhaler of breath or wheezing #18 grams cranberry concentrate-ascorbic 4 cap PO DAILY 01/27/21 08/19/23 acid 4,200 mg-20 mg capsule nitroglycerin 0.3 mg sublingual 0.3 mg sublingual Q5M PRN chest 06/14/22 08/19/23 tablet pain #10 tabs aspirin 81 mg tablet,delayed 81 mg PO DAILY 08/09/22 08/19/23 release (Adult Aspirin Regimen) ezetimibe 10 mg tablet 10 mg PO DAILY 08/21/22 08/19/23 levothyroxine 175 mcg tablet 175 mcg PO DAILY #90 tab-caps 09/24/22 08/19/23 chlorthalidone 25 mg tablet 25 mg PO DAILY #90 tabs 12/10/22 08/19/23 atorvastatin 40 mg tablet 40 mg PO DAILY #90 tabs 12/27/22 08/19/23 clopidogrel 75 mg tablet (Plavix) 75 mg PO DAILY #90 tabs 12/27/22 08/19/23 insulin degludec 100 unit/mL (3 19 - 21 unit subcut QHS 02/08/23 08/19/23 mL) subcutaneous pen (Tresiba FlexTouch U-100 insulin) beclomethasone dipropionate 80 2 inh inhalation BID #10.6 grams 02/13/23 08/19/23 mcg/actuation HFA breath activated aerosol (Qvar RediHaler) lisinopril 40 mg tablet 40 mg PO DAILY #90 tab-caps 03/14/23 08/19/23 insulin lispro 100 unit/mL See Rx Instructions subcut AC #4 04/19/23 08/19/23 subcutaneous pen (Humalog KwikPen SYRGS (U-100) Insulin) metoprolol succinate 25 mg See Rx Instructions .Route 05/16/23 08/19/23 tablet,extended release 24 hr .COMPLEX #90 tabs blood-glucose transmitter (Dexcom #9 ea 05/22/23 08/19/23 G6 Transmitter device) blood-glucose sensor (Dexcom G6 #9 ea 05/27/23 08/19/23 Sensor device) amoxicillin 875 mg-potassium 1 tab PO Q12H #14 tabs 08/19/23 clavulanate 125 mg tablet doxycycline hyclate 100 mg capsule 100 mg PO BID #14 caps 08/19/23 levothyroxine 112 mcg tablet 112 mcg PO DAILY 08/19/23 08/19/23 Previous Rx's Medication Instructions Recorded albuterol sulfate 90 mcg/actuation 2 inh inhalation Q6H PRN shortness 01/07/20 aerosol inhaler of breath or wheezing #18 grams nitroglycerin 0.3 mg sublingual 0.3 mg sublingual Q5M PRN chest 06/14/22 tablet pain #10 tabs levothyroxine 175 mcg tablet 175 mcg PO DAILY #90 tab-caps 09/24/22 chlorthalidone 25 mg tablet 25 mg PO DAILY #90 tabs 12/10/22 atorvastatin 40 mg tablet 40 mg PO DAILY #90 tabs 12/27/22 clopidogrel 75 mg tablet (Plavix) 75 mg PO DAILY #90 tabs 12/27/22 beclomethasone dipropionate 80 2 inh inhalation BID #10.6 grams 02/13/23 mcg/actuation HFA breath activated aerosol (Qvar RediHaler) lisinopril 40 mg tablet 40 mg PO DAILY #90 tab-caps 03/14/23 insulin lispro 100 unit/mL See Rx Instructions subcut AC #4 04/19/23 subcutaneous pen (Humalog KwikPen SYRGS (U-100) Insulin) metoprolol succinate 25 mg See Rx Instructions .Route 05/16/23 tablet,extended release 24 hr .COMPLEX #90 tabs blood-glucose transmitter (Dexcom #9 ea 05/22/23 G6 Transmitter device) blood-glucose sensor (Dexcom G6 #9 ea 05/27/23 Sensor device) amoxicillin 875 mg-potassium 1 tab PO Q12H #14 tabs 08/19/23 clavulanate 125 mg tablet doxycycline hyclate 100 mg capsule 100 mg PO BID #14 caps 08/19/23 Allergies Allergy/AdvReac Type Severity Reaction Status Date / Time Latex, Natural Rubber Allergy Unknown Skin Rash Verified 08/19/23 07:59 General Stated Complaint: Nausea/Vomit/Diar CHRISTINE: 3 Review of Systems Constitutional Constitutional: Reports chills, Reports fatigue, Reports fever(s), Reports malaise and Reports poor appetite Cardiovascular Cardiovascular: Denies chest pain and Denies dyspnea Respiratory Respiratory: Reports cough and Denies dyspnea Gastrointestinal Gastrointestinal: Reports as per HPI, Reports abdominal pain, Denies melena, Denies change in bowel habits, Denies constipation, Denies diarrhea, Reports nausea and Reports vomiting Genitourinary Genitourinary: Denies hematuria, Denies urinary incontinence, Denies urinary hesitancy and Denies urinary urgency Integumentary/Breasts Skin/Breast: Denies rash Endocrine Endocrine: Reports fatigue Exam Const General: cooperative Orientation: alert, awake and oriented x3 Resp Effort & Inspection: normal respiratory effort and able to speak in complete sentences Auscultation: clear to auscultation bilaterally Cardio Rate: tachycardic Rhythm: regular rhythm Heart Sounds: S1 normal and S2 normal GI Inspection: obesity Palpation: soft, not firm, no guarding, no masses, no pulsatile masses, not rigid and nontender Auscultation: normal bowel sounds Back/Spine/Pelvis Back: no CVA tenderness Neuro General: patient alert, patient awake, patient oriented x3, gait normal and moves all extremities Course Vital Signs Vital signs: Vital Signs Temperature 36.8 C 08/19/23 07:56 Pulse 118 H 08/19/23 07:56 Respiratory Rate 18 08/19/23 07:56 Blood Pressure 162/78 H 08/19/23 07:56 Pulse Oximetry 95 08/19/23 07:56 Temperature 36.8 C 08/19/23 07:56 Temperature Source Oral 08/19/23 07:56 Pulse 118 H 08/19/23 07:56 Respiratory Rate 18 08/19/23 07:56 Respiratory Effort Normal, Non-Labored 08/19/23 08:02 Blood Pressure 162/78 H 08/19/23 07:56 Blood Pressure Position Sitting 08/19/23 07:56 Pulse Oximetry 95 08/19/23 07:56 Oxygen Delivery Method Room Air 08/19/23 07:56 Oxygen Flow Rate 0 08/19/23 07:56 Pain Level 6 08/19/23 07:56 Medical Decision Making Patient presenting to the emergency department for chief complaint of nausea vomiting diarrhea along with fever chills and malaise. Patient reports starting with a slight dry cough and mild nausea on that progressed throughout the weekend. She denies any ill contacts, recent travel, eating of bad food or drink or contaminated water. Patient has significant past medical history of diabetes, hypothyroidism, coronary artery disease. Physical exam shows tachycardia, general ill appearance but nontoxic, soft nontender abdomen with normal active bowel sounds, no CVA tenderness and otherwise noncontributory exam. Suspect viral gastroenteritis but will check labs for dehydration and possible electrolyte abnormalities, pending results will give patient liter fluids and Zofran. Review of patient's labs show a significant leukocytosis with WBC count of 14, there is some hyponatremia, low chloride, elevated anion gap, BUN of 52, creatinine of 1.3, glucose of 140 alk phos slightly elevated 130 otherwise nondiagnostic labs. Urinalysis shows what appears to be a contaminated specimen but I do not think she has a UTI. Patient is negative for COVID flu and RSV. Given elevated white count that is fairly significant will perform CT imaging. CT imaging shows no acute abdominal findings but there is findings of right lower lobe pneumonia. Will perform chest x-ray for further evaluation of this given CT imaging does not give full picture of pulmonary system. Chest x-ray reviewed and did show right lower lung pneumonia and did not find any other worrisome findings. Given patient's nausea vomiting will give patient IV dose of ceftriaxone and doxycycline otherwise she does state improvement of symptoms so I do feel that she can appropriately be discharged with close primary care follow-up preferably next couple days to ensure that she is appropriately improving. Patient was able to tolerate p.o. intake, resolution of tachycardia was noted, and no hypoxia. After discussion of diagnosis and plan of care patient has no further needs, questions, or concerns and states clear understanding to return to the emergency department for any worsening symptoms. This documentation was generated using [employer] system, please disregard any oddities of phrase or misspellings. Imaging Data Radiologic Study: Imaging: CT Scan Radiologist's impression: Exam(s) CT ABDOMEN PELVIS W EXAM: CT ABDOMEN PELVIS W CLINICAL HISTORY: n/v/d abd pain. TECHNIQUE: Imaging Protocol: Axial computed tomography images with coronal and sagittal reformatted images were created and reviewed CONTRAST MATERIAL: Intravenous: Omnipaque 350 Contrast volume:98 ml Oral: / no COMPARISON: No exams were available for comparison FINDINGS: ABDOMEN and PELVIS: Lung Bases: Lower lobe pneumonia. Liver: Normal density. No measurable mass. Gallbladder and biliary tract: No radiodense calculus or dilation. Pancreas: Normal density. No abnormal calcifications or inflammatory process. No evidence of mass. Spleen: Normal. Kidneys: Normal size, contour and axis. No radiodense stones. No obstructive uropathy. No suspicious masses seen. Adrenal glands: No masses seen. Vasculature: Abdominal aorta non-dilated. Soft tissues: Unremarkable. Bladder: No gross wall thickening. No calculi.No focal mass. Bowel: No obstruction. No bowel wall thickening. Appendix normal. Quantity of stool. Peritoneal cavity: No ascites. No focal collection or mesenteric inflammatory response. Bones: Unremarkable for age. Reproductive organs: Within normal limits. Lymph nodes: Unremarkable. IMPRESSION:: Right lower lobe pneumonia, otherwise unremarkable CT scan of the abdomen and pelvis. Radiologic Study #2: Imaging: X-Ray Radiologist's impression: Exam(s) XR CHEST 2V PA LATERAL EXAM: XR CHEST 2V PA LATERAL CLINICAL HISTORY: cough TECHNIQUE: 2D digital imaging was performed. COMPARISON: CR CHEST 2 VIEWS PA,LAT from 08/07/2011 FINDINGS: HEART: Normal size. Aorta: Not dilated. PULMONARY VASCULATURE: Normal. LUNGS: Patchy densities posterior right lower lobe consistent with pneumonia. Left lung appears clear. PLEURAL SPACE: No pleural effusion or pneumothorax. BONE:Unremarkable for age. Soft tissues: Unremarkable. IMPRESSION: Right lower lobe pneumonia. Quality:SDOH Health Related Social Needs: No Data to Display PFSH All Active Problems (Updated 08/19/23 @ 12:27 by Bipin Aleman NP) Acute dehydration (Acute) Acute kidney injury (Acute) Nausea & vomiting (Acute) Pneumonia (Acute) Postmenopausal vaginal bleeding (Acute) --Endocervical polyp and thickened endometrium s/p negative endometrial biopsy 04/17 --Recurrence 2020 s/p D&C, pathology benign Ultrasound 03/20 7 mm endometrial stripe. Endometrial biopsy 02/28/2023. 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) Hypothyroidism (Chronic) Essential hypertension (Chronic) Hyperlipidemia (Chronic) Asthma (Chronic) Medical History COVID-19 Cyst (solitary) of breast Left MRSA elsewhere/NOS Surgical History S/P coronary artery stent placement (07/13/22) TEREZA to LAD and RCA S/P dilatation and curettage (~03/23/21) S/P arthroscopy of right shoulder (07/08/20) With decompression, biceps tenodesisis, labral debridement at [facility] History of bilateral tubal ligation (05/30/95) History of section (08/31/86) 08/31/86; 05/30/95 History of left cataract surgery (10/13/13) History of right cataract surgery (10/27/13) Family History Mother Essential hypertension Hyperlipidemia Asthma Father , at 53 of prostate cancer Substance abuse Alcohol abuse Prostate cancer Sister Asthma Depression Brother Asthma Emphysema of lung Brother No problems noted. Brother Emphysema of lung Son No problems noted. Son Depression Maternal Grandfather , of [place] in his 50s Heart disease Myocardial infarction Hyperlipidemia Stroke Maternal Grandmother Leukemia Paternal Grandfather Myocardial infarction Heart disease Alzheimer disease Paternal Grandmother Neoplasm Unknown type, female cancer Stroke Social History Smoking/Tobacco Use Status: Former Tobacco Use tobacco type: cigarettes Quit Date: 07/29/15 Tobacco: How many years used: 42 Second Hand Exposure: Yes Smoking risk assessment performed?: Yes Drug use: Never Substance use type: does not use Details: last used marijuana over a year ago Caregiver/Support person: No Household members: spouse and family Housing: house Communication Needs: None Do you need help understanding health information?: Never 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 Pets and animals: Yes Pets and animals: cat(s) and dog(s) Sexually active: Yes Do you think of yourself as: straight/heterosexual Current gender identity: female What is your relationship status?: How often do you talk on the phone with friends or family?: decline to answer How often do you get together with friends or relatives?: decline to answer How often do you attend congregation or quaker services?: decline to answer Do you belong to any clubs or organized social groups?: decline to answer Panel score (0-1 are the most socially isolated patients): 1 What type of physical activity do you participate in: walking Duration: 30-45 minutes/day Frequency: 5-6 times per week Lilia/Confucianist: No preference Special lilia needs: No Seatbelt use: always Helmet use: Yes Helmet use: always Drive intox or ride w/intox truck driver 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: No Do you feel safe at home: Yes Do you feel safe in your relationship?: Yes Female Reproductive History Menstrual Menopause type: natural History History 2 Para 2 Hx # Term Pregnancies Multiple births Hx # Pregnancies Ectopic pregnancies AB induced Hx Number of Living Children 2 AB spontaneous Discharge Plan Disposition Patient Disposition: Home Discharge Details Clinical Impression: Pneumonia, Nausea & vomiting, Acute kidney injury, Acute dehydration Primary Care Provider: Yelitza Mukherjee ED Provider: Bipin Aleman Home Meds and New Rx's Prescriptions: New amoxicillin-pot clavulanate 875-125 mg tablet 1 tab PO Q12H Qty: 14 0RF doxycycline hyclate 100 mg capsule 100 mg PO BID Qty: 14 0RF No Action albuterol sulfate 90 mcg/actuation HFA aerosol inhaler 2 inh IH Q6H PRN (Reason: shortness of breath or wheezing) Qty: 18 4RF cranberry conc-ascorbic acid 4,200-20 mg capsule 4 cap PO DAILY vitamin B complex [B Complex 1] tablet 1 tab PO DAILY multivitamin capsule 1 cap PO DAILY insulin degludec [Tresiba FlexTouch U-100] 100 unit/mL (3 mL) insulin pen 19 - 21 unit SC QHS Rx Instructions: 19 units on workdays and 21 units on nonwork days. ezetimibe 10 mg tablet 10 mg PO DAILY atorvastatin 40 mg tablet 40 mg PO DAILY Qty: 90 3RF clopidogrel [Plavix] 75 mg tablet 75 mg PO DAILY Qty: 90 3RF Rx Instructions: 1 tab daily x 6-12 mo nitroglycerin 0.3 mg tablet, sublingual 0.3 mg sublingual Q5M PRN (Reason: chest pain) Qty: 10 3RF Rx Instructions: do not exceed 3 doses per episode aspirin [Adult Aspirin Regimen] 81 mg tablet,delayed release (DR/EC) 81 mg PO DAILY levothyroxine 175 mcg tablet 175 mcg PO DAILY Qty: 90 3RF chlorthalidone 25 mg tablet 25 mg PO DAILY Qty: 90 3RF Rx Instructions: Take 1 tab daily Qvar RediHaler 80 mcg/actuation HFA aerosol breath activated 2 inh inhalation BID Qty: 10.6 3RF lisinopril 40 mg tablet 40 mg PO DAILY Qty: 90 3RF insulin lispro [Humalog KwikPen Insulin] 100 unit/mL insulin pen See Rx Instructions subcut AC MDD 50 units Qty: 4 4RF Dose Instruction: subcut AC; 6-8 units at meal time Rx Instructions: 1unit/40gm of carb before meals metoprolol succinate 25 mg tablet extended release 24 hr See Rx Instructions .ROUTE .COMPLEX Qty: 90 3RF Dose Instruction: TAKE 1 TABLET BY MOUTH DAILY Rx Instructions: TAKE 1 TABLET BY MOUTH DAILY (DME) Dexcom G6 Transmitter Device See Rx Instructions .ROUTE .MEDSUPPLY Qty: 9 3RF Rx Instructions: Continuous glucose monitor (DME) Dexcom G6 Sensor Device See Rx Instructions .ROUTE .MEDSUPPLY Qty: 9 4RF Rx Instructions: Continuous glucose monitor levothyroxine 112 mcg tablet 112 mcg PO DAILY Patient Comments: TAKE 1 TABLET BY MOUTH DAILY Discharge Instructions Instructions: Acute Nausea and Vomiting (ED), Pneumonia (ED) Additional Instructions: It is very important that you stay well-hydrated, continue to take both antibiotics as prescribed, and follow-up with your primary care provider in 3 days for reassessment of your symptoms and to ensure you are appropriately improving. If you have any new or significant worsening of symptoms, are unable to take your antibiotics, or have any further concerns please return immediately to the emergency department for reassessment. Stand Alone Forms: Work Release Referrals: Yelitza Mukherjee NP [Primary Care Provider] - 3 days
[2023-08-19 08:24] LABS: Abs Immature Grans 0.06 10^3/uL (0.0-0.06); Basophils % 0.4; Eosinophils % 0.4; HCT 35.4 % (36.0-46.0); Immature Grans % 0.4; Lymphocytes % 7.7; MCH 28.7 pg (27.0-33.0); MCHC 33.9 % (32.0-36.0); MCV 85 fL (80-95); MPV 8.9 fL (8.0-11.0); Monocytes % 10.6; Neutrophils % 80.5; Platelet Count 271 10^3/uL (130-400); RBC 4.18 10^6/uL (3.93-5.22); RDW 14.1 % (11.7-14.6); RDW-SD 43.8 fL; WBC 14.21 10^3/uL (4.4-10.8)
[2023-08-19 08:25] LABS: Absolute Basophil Count 0.06 10^3/uL (0.0-0.2); Absolute Eosinophil Count 0.06 10^3/uL (0.0-0.7); Absolute Lymphocyte Count 1.09 10^3/uL (1.2-3.4); Absolute Monocyte Count 1.51 10^3/uL (0.1-0.8); Absolute Neutrophil Count 11.44 10^3/uL (1.2-6.7)
[2023-08-19] MEDS: Normal Saline 1,000 ML 1000 ML IV ×2 (08:28→09:37)
[2023-08-19] MEDS: Ondansetron 4 MG/2 ML VIAL IVP (08:28)
[2023-08-19 09:00] LABS: ALT 34 U/L (14-59); AST 33 U/L (15-37); Albumin 3.3 g/dL (3.4-5.0); Alkaline Phosphatase 130 U/L (46-116); Anion Gap 12.1 mmol/L (3-11); BUN 52 mg/dL (7-18); Bilirubin, Total 0.5 mg/dL (0.2-1.0); CO2 25.9 mmol/L (21.0-32.0); CREATININE 1.3 mg/dL (0.55-1.02); Calcium 9.6 mg/dL (8.5-10.1); Chloride 94 mmol/L (98-107); Estimated GFR 47.37 (mL/min/1.73m2); Glucose 140 mg/dL (74-106); Lipase 30 U/L (16-77); Magnesium 2.4 mg/dL (1.8-2.4); Potassium 4.1 mmol/L (3.5-5.1); Sodium 132 mmol/L (136-145); Total Protein 7.9 g/dL (6.4-8.2); Troponin I < 50 ng/L (< or =60)
[2023-08-19 09:03] LABS: COVID-19 PCR Negative (Negative); Influenza A PCR Negative (Negative); Influenza B PCR Negative (Negative); RSV PCR Negative (Negative)
[2023-08-19 09:04] LABS: Source Nasopharynx
--- NOTE | 2023-08-19 09:15 | DI.CT_ITS ---
Exam(s) CT ABDOMEN PELVIS W EXAM: CT ABDOMEN PELVIS W CLINICAL HISTORY: n/v/d abd pain. TECHNIQUE: Imaging Protocol: Axial computed tomography images with coronal and sagittal reformatted images were created and reviewed CONTRAST MATERIAL: Intravenous: Omnipaque 350 Contrast volume:98 ml Oral: / no COMPARISON: No exams were available for comparison FINDINGS: ABDOMEN and PELVIS: Lung Bases: Lower lobe pneumonia. Liver: Normal density. No measurable mass. Gallbladder and biliary tract: No radiodense calculus or dilation. Pancreas: Normal density. No abnormal calcifications or inflammatory process. No evidence of mass. Spleen: Normal. Kidneys: Normal size, contour and axis. No radiodense stones. No obstructive uropathy. No suspicious masses seen. Adrenal glands: No masses seen. Vasculature: Abdominal aorta non-dilated. Soft tissues: Unremarkable. Bladder: No gross wall thickening. No calculi.No focal mass. Bowel: No obstruction. No bowel wall thickening. Appendix normal. Quantity of stool. Peritoneal cavity: No ascites. No focal collection or mesenteric inflammatory response. Bones: Unremarkable for age. Reproductive organs: Within normal limits. Lymph nodes: Unremarkable. IMPRESSION:: Right lower lobe pneumonia, otherwise unremarkable CT scan of the abdomen and pelvis. RADIATION DOSE DELIVERED: 1,083.34mGy.cm Total DLP DATA REPOSITORY: All CT scans at this facility are submitted to the National Radiology Data Registry (NRDR) Dose Index Registry (DIR) with the [employer] (ACR). RADIATION OPTIMIZATION: All CT scans at this facility use at least one of these dose optimization te chniques: automated exposure control; mA and/or kV adjustment per patient size (includes targeted exa ms where dose is matched to clinical indication); or iterative reconstruction.
[2023-08-19] MEDS: Normal Saline - Diluent 50 ML VIAL IJ (09:48)
[2023-08-19] MEDS: Omnipaque 350 MG/ML 100 ML BTL IJ (09:49)
--- NOTE | 2023-08-19 10:30 | DI.RAD_ITS ---
Exam(s) XR CHEST 2V PA LATERAL EXAM: XR CHEST 2V PA LATERAL CLINICAL HISTORY: cough TECHNIQUE: 2D digital imaging was performed. COMPARISON: CR CHEST 2 VIEWS PA,LAT from 08/07/2011 FINDINGS: HEART: Normal size. Aorta: Not dilated. PULMONARY VASCULATURE: Normal. LUNGS: Patchy densities posterior right lower lobe consistent with pneumonia. Left lung appears mike r. PLEURAL SPACE: No pleural effusion or pneumothorax. BONE:Unremarkable for age. Soft tissues: Unremarkable. IMPRESSION: Right lower lobe pneumonia. DATA REPOSITORY: RADIATION DOSE DELIVERED:
[2023-08-19 11:01] LABS: Bilirubin Negative (Negative); Blood Trace-lysed (Negative); Clarity Sl Cloudy (Clear); Glucose Negative (Negative); Ketones 15 mg/dL (Negative); Leukocyte Esterase Small (Negative); Nitrite Negative (Negative); Specific Gravity <= 1.005 (1.005-1.025); Urobilinogen 0.2 mg/dL (Up to 0.2); pH 5.5 (5-8)
[2023-08-19 11:09] LABS: Bacteria Rare HPF (Negative); C & S Indicated? No/Sq. Contamination; Casts Negative LPF (Negative); Crystals Negative HPF (Negative); Epithelial Cells Many HPF (Negative); Mucus Negative (Negative); RBC 0-2 HPF (0-2)
[2023-08-19] MEDS: Doxycycline Hyclate 100 MG CAP PO (12:03)
[2023-08-19] MEDS: cefTRIAXone 1 GM/50 ML BAG IVPB (12:03)
--- NOTE | 2023-08-19 18:08 | NUR.NOTE ---
Referral Faxed for Primary Care Physician for a recheck on pneumonia in 2-3 days.
== END 2023-08-19 12:42 | disposition home or self-care (01) ==
PROVIDERS: Emergency Provider Nurse Practitioner Family; PCP Nurse Practitioner Family
DX: J18.9 Pneumonia, unspecified organism (principal); E86.0 Dehydration; N17.9 Acute kidney failure, unspecified; I12.9 Hypertensive chronic kidney disease with stage 1 through stage 4 chronic kidney disease, or unspecified chronic kidney disease; E10.22 Type 1 diabetes mellitus with diabetic chronic kidney disease; N18.2 Chronic kidney disease, stage 2 (mild); E78.5 Hyperlipidemia, unspecified; I25.10 Atherosclerotic heart disease of native coronary artery without angina pectoris; Z79.4 Long term (current) use of insulin; Z79.02 Long term (current) use of antithrombotics/antiplatelets; Z95.5 Presence of coronary angioplasty implant and graft; Z87.891 Personal history of nicotine dependence; Z11.52 Encounter for screening for COVID-19
CPT/HCPCS: 80053; 82962; 83690; 87637; 96361; 96365; 96375; 99285; 71046; 74177; 81003; 81015; 83735; 84484; 85025; 99284; J0696; J2405; J3490

== ENCOUNTER 2023-08-27 14:02 | Outpatient (RCR) | payer SELFPAY ==
[2023-07-29 00:03] VITALS: BP 126/54; PULSE 64
[2023-08-01 13:59] VITALS: BP 138/57; PULSE 64
[2023-08-06 14:29] VITALS: BP 122/53; PULSE 62
[2023-08-29 09:20] VITALS: BP 116/50; PULSE 73
== END 2023-08-28 23:59 | disposition home or self-care (01) ==
LOC: CR 14:02
PROVIDERS: PCP Nurse Practitioner Family; Visit Provider Internal Medicine Interventional Cardiology
DX: R69 Illness, unspecified (principal)

== ENCOUNTER → 2023-09-20 00:32 | Outpatient (CLI) | payer OTHER, SELFPAY ==
--- NOTE | 2023-09-20 09:03 | DI.RAD_ITS ---
Exam(s) XR CHEST 2V PA LATERAL EXAM: XR CHEST 2V PA LATERAL CLINICAL HISTORY: PNEUMONIA, J18.9 TECHNIQUE: 2D digital imaging was performed of the chest. Two images were obtained. PA and lateral views were obtained. COMPARISON: CR XR CHEST 2V PA LATERAL from 08/19/2023 FINDINGS: MEDIASTINUM: Normal. HEART: Normal. PULMONARY VASCULATURE: Normal. LUNGS: Clear. There has been resolution of the right lower lobe pneumonia. PLEURAL SPACE: No pleural effusion or pneumothorax. BONE:Within normal limits for the patient's age. OTHER FINDINGS:Normal. IMPRESSION: No acute pulmonary findings. DATA REPOSITORY: RADIATION DOSE DELIVERED:
== END ==
PROVIDERS: PCP Nurse Practitioner Family; Visit Provider Family Medicine
DX: J18.9 Pneumonia, unspecified organism (principal)
CPT/HCPCS: 71046

== ENCOUNTER 2023-09-20 01:36 | Outpatient (CLI) | payer OTHER, SELFPAY ==
[2023-09-20 09:41] LABS: Abs Immature Grans 0.03 10^3/uL (0.0-0.06); Absolute Basophil Count 0.07 10^3/uL (0.0-0.2); Absolute Eosinophil Count 0.24 10^3/uL (0.0-0.7); Absolute Monocyte Count 0.65 10^3/uL (0.1-0.8); Basophils % 0.8; Eosinophils % 2.7; HCT 34.2 % (36.0-46.0); HGB 11.4 g/dL (11.2-15.7); Immature Grans % 0.3; Lymphocytes % 22.5; MCH 29.2 pg (27.0-33.0); MCHC 33.3 % (32.0-36.0); MCV 88 fL (80-95); MPV 9.5 fL (8.0-11.0); Monocytes % 7.3; Neutrophils % 66.4; Platelet Count 278 10^3/uL (130-400); RDW 14.2 % (11.7-14.6); RDW-SD 45.7 fL; WBC 8.89 10^3/uL (4.4-10.8)
[2023-09-20 10:13] LABS: COMMENT (LAB VIEW ONLY) 43.64 mg/dL; Microalb ug/mg Crea 52.2 ug/mg Cr
[2023-09-20 10:13] LABS: FREE T4 1.14 ng/dL (0.76-1.46); TSH 2.56 uIU/mL (0.36-3.74)
[2023-09-20 10:26] LABS: Calculated LDL 45 mg/dL (<100); Cholesterol 111 mg/dL (<200); HDL Cholesterol 54 mg/dL (40-60); Triglyceride 60 mg/dL (<150)
[2023-09-20 10:39] LABS: ALT 38 U/L (14-59); AST 29 U/L (15-37); Albumin 3.9 g/dL (3.4-5.0); Alkaline Phosphatase 120 U/L (46-116); Anion Gap 9.5 mmol/L (3-11); BUN 27 mg/dL (7-18); Bilirubin, Total 0.3 mg/dL (0.2-1.0); CO2 28.5 mmol/L (21.0-32.0); CREATININE 0.9 mg/dL (0.55-1.02); Calcium 9.5 mg/dL (8.5-10.1); Chloride 103 mmol/L (98-107); Estimated GFR 73.64 (mL/min/1.73m2); Glucose 177 mg/dL (74-106); Potassium 4.7 mmol/L (3.5-5.1); Sodium 141 mmol/L (136-145)
[2023-09-22 09:49] LABS: Fructosamine 291 mcmol/L (200 - 285)
== END 2023-09-20 01:37 | disposition home or self-care (01) ==
LOC: LBO 01:36
PROVIDERS: Internal Medicine Endocrinology, Diabetes & Metabolism; PCP Nurse Practitioner Family; Visit Provider Family Medicine
DX: Z00.00 Encounter for general adult medical examination without abnormal findings (principal); J18.9 Pneumonia, unspecified organism
CPT/HCPCS: 36415; 80053; 80061; 82043; 82570; 82985; 83036; 84439; 84443; 85025

== ENCOUNTER 2023-09-24 14:04 | Outpatient (RCR) | payer SELFPAY ==
[2023-08-29 00:04] VITALS: BP 126/54; PULSE 64
[2023-08-29 14:00] VITALS: BP 116/54; PULSE 60
[2023-09-05 14:23] VITALS: BP 114/55; PULSE 72
[2023-09-10 14:15] VITALS: BP 123/56; PULSE 71
[2023-09-17 15:38] VITALS: BP 154/68; PULSE 65
[2023-09-19 14:00] VITALS: BP 144/56; PULSE 68
[2023-09-24 14:09] VITALS: BP 138/63; PULSE 73
== END 2023-09-26 23:59 | disposition home or self-care (01) ==
LOC: CR 14:04
PROVIDERS: PCP Nurse Practitioner Family; Visit Provider Internal Medicine Cardiovascular Disease
DX: R69 Illness, unspecified (principal)

== ENCOUNTER 2023-10-15 15:44 | Outpatient (RCR) | payer SELFPAY ==
[2023-09-27 00:16] VITALS: BP 126/54; PULSE 64
[2023-10-01 14:03] VITALS: BP 122/58; PULSE 67
[2023-10-08 14:06] VITALS: BP 101/53; PULSE 83
[2023-10-15 14:00] VITALS: BP 148/64; PULSE 71
== END 2023-10-27 23:59 | disposition home or self-care (01) ==
LOC: CR 15:44
PROVIDERS: PCP Nurse Practitioner Family; Visit Provider Internal Medicine Cardiovascular Disease
DX: R69 Illness, unspecified (principal)

== ENCOUNTER 2023-11-26 14:15 | Outpatient (RCR) | payer SELFPAY ==
[2023-10-29 14:19] VITALS: BP 105/53; PULSE 79
[2023-11-05 14:08] VITALS: BP 113/55; PULSE 72
[2023-11-07 14:00] VITALS: BP 112/54; PULSE 71
[2023-11-19 14:10] VITALS: BP 122/63; PULSE 87
[2023-11-21 14:16] VITALS: BP 104/55; PULSE 73
[2023-11-26 14:00] VITALS: BP 124/56; PULSE 84
== END 2023-11-26 23:59 | disposition home or self-care (01) ==
LOC: CR 14:15
PROVIDERS: PCP Nurse Practitioner Family; Visit Provider Internal Medicine Cardiovascular Disease
DX: R69 Illness, unspecified (principal)

== ENCOUNTER 2024-01-02 14:08 | Outpatient (RCR) | payer SELFPAY ==
[2024-01-02 14:18] VITALS: BP 103/58; PULSE 86
== END 2024-01-26 23:59 | disposition home or self-care (01) ==
LOC: CR 14:08
PROVIDERS: PCP Nurse Practitioner Family; Visit Provider Internal Medicine Cardiovascular Disease
DX: R69 Illness, unspecified (principal)

== ENCOUNTER 2024-01-20 19:33 | Outpatient (CLI) | payer OTHER, SELFPAY ==
[2024-01-20 15:40] LABS: Hemoglobin A1C 7.6 % (<5.7)
[2024-01-20 16:13] LABS: ALT 41 U/L (14-59); AST 27 U/L (15-37); Albumin 3.7 g/dL (3.4-5.0); Alkaline Phosphatase 112 U/L (46-116); Anion Gap 8.3 mmol/L (3-11); BUN 34 mg/dL (7-18); Bilirubin, Total 0.33 mg/dL (0.2-1.0); CO2 26.7 mmol/L (21.0-32.0); CREATININE 1.1 mg/dL (0.55-1.02); Calcium 9.3 mg/dL (8.5-10.1); Chloride 105 mmol/L (98-107); Estimated GFR 57.88 (mL/min/1.73m2); GGT 44 U/L (5-55); Glucose 172 mg/dL (74-106); Sodium 140 mmol/L (136-145); Total Protein 6.7 g/dL (6.4-8.2)
== END 2024-01-20 19:34 | disposition home or self-care (01) ==
LOC: LBO 19:34
PROVIDERS: PCP Nurse Practitioner Family; Visit Provider Internal Medicine Endocrinology, Diabetes & Metabolism
DX: E10.42 Type 1 diabetes mellitus with diabetic polyneuropathy; E03.9 Hypothyroidism, unspecified
CPT/HCPCS: 36415; 80053; 82977; 83036

== ENCOUNTER 2024-02-10 08:37 | Outpatient (CLI) | payer OTHER, SELFPAY ==
--- NOTE | 2024-02-10 08:30 | RT.EKG_ITS ---
APPROVED REPORT Exam: Resting ECG Reason for Exam: CAD Patient Location: O HR:66 bpm ECG Measurements Heart Rate 66 AXIS TN 162 P 10 QRSd 95 QRS 4 QT 399 T 3 QTc 418 Conclusion Sinus rhythm...normal P axis, V-rate 50- 99 Normal Electrocardiogram
== END 2024-02-10 08:38 | disposition home or self-care (01) ==
LOC: DI.CARD 08:38
PROVIDERS: PCP Nurse Practitioner Family; Visit Provider Internal Medicine Cardiovascular Disease
DX: I25.10 Atherosclerotic heart disease of native coronary artery without angina pectoris (principal)
CPT/HCPCS: 93010

== ENCOUNTER 2024-02-20 14:10 | Outpatient (RCR) | payer SELFPAY ==
[2024-01-28 14:40] VITALS: BP 117/54; PULSE 77
[2024-02-04 14:11] VITALS: BP 112/56; PULSE 74; O2SAT 96
[2024-02-13 14:17] VITALS: BP 108/57; PULSE 92
[2024-02-20 14:00] VITALS: BP 107/52; PULSE 78
== END 2024-02-26 23:59 | disposition home or self-care (01) ==
LOC: CR 14:10
PROVIDERS: PCP Nurse Practitioner Family; Visit Provider Internal Medicine Cardiovascular Disease
DX: R69 Illness, unspecified (principal)

== ENCOUNTER 2024-03-24 14:23 | Outpatient (RCR) | payer SELFPAY ==
[2024-02-27 00:34] VITALS: BP 107/52; PULSE 78
[2024-03-10 14:00] VITALS: BP 109/56; PULSE 76
[2024-03-12 14:07] VITALS: BP 104/52; PULSE 103
[2024-03-17 14:19] VITALS: BP 106/51; PULSE 79
[2024-03-24 14:20] VITALS: BP 121/54; PULSE 104
== END 2024-03-28 23:59 | disposition home or self-care (01) ==
LOC: CR 14:23
PROVIDERS: PCP Nurse Practitioner Family; Visit Provider Internal Medicine Cardiovascular Disease
DX: R69 Illness, unspecified (principal)

== ENCOUNTER 2024-04-10 15:02 | Outpatient (CLI) | payer OTHER, SELFPAY ==
[2024-04-10 15:33] LABS: Hemoglobin A1C 7.2 % (<5.7)
[2024-04-11 10:48] LABS: HIV-1/2 Ag & Ab Screen Negative (Negative)
[2024-04-13 10:07] LABS: Hepatitis C Ab w Rflx HCV PCR Negative (Negative)
[2024-04-13 11:26] LABS: HBs Antibody, Quant 5.1 mIU/mL (See Note); Hep B Surface Ab Negative (See Note); Hepatitis B Core Antibody Negative (Negative); Hepatitis B Surface Antigen Negative (Negative)
== END 2024-04-10 15:03 | disposition home or self-care (01) ==
LOC: LBO 15:02
PROVIDERS: Internal Medicine Endocrinology, Diabetes & Metabolism; PCP Nurse Practitioner Family; Visit Provider Nurse Practitioner Family
DX: Z11.4 Encounter for screening for human immunodeficiency virus [HIV] (principal); Z11.59 Encounter for screening for other viral diseases
CPT/HCPCS: 36415; 86704; 86706; 86803; 87340; 87389; 83036

== ENCOUNTER 2024-04-23 14:58 | Outpatient (RCR) | payer SELFPAY ==
[2024-03-29 00:32] VITALS: BP 107/52; PULSE 78
[2024-03-31 14:15] VITALS: BP 113/54; PULSE 82
[2024-04-07 14:44] VITALS: BP 98/58; PULSE 76
[2024-04-14 14:30] VITALS: BP 118/54; PULSE 79
[2024-04-16 15:10] VITALS: BP 105/52; PULSE 79
[2024-04-21 16:15] VITALS: BP 129/65; PULSE 91
[2024-04-23 14:00] VITALS: BP 132/64; PULSE 64
== END 2024-04-27 23:59 | disposition home or self-care (01) ==
LOC: CR 14:58
PROVIDERS: PCP Nurse Practitioner Family; Visit Provider Internal Medicine Cardiovascular Disease
DX: R69 Illness, unspecified (principal)

== ENCOUNTER 2024-05-28 14:08 | Outpatient (RCR) | payer SELFPAY ==
[2024-05-12 15:40] VITALS: BP 126/55; PULSE 77
[2024-05-14 14:05] VITALS: BP 99/55; PULSE 77; O2SAT 95
[2024-05-26 14:43] VITALS: BP 113/59; PULSE 76
[2024-05-28 14:22] VITALS: BP 107/52; PULSE 75
== END 2024-05-28 23:59 | disposition home or self-care (01) ==
LOC: CR 14:08
PROVIDERS: PCP Nurse Practitioner Family; Visit Provider Internal Medicine Cardiovascular Disease
DX: R69 Illness, unspecified (principal)

== ENCOUNTER 2024-06-04 14:06 | Outpatient (RCR) | payer SELFPAY ==
[2024-05-29 00:36] VITALS: BP 107/52; PULSE 75
[2024-06-04 14:15] VITALS: BP 114/55; PULSE 71
== END 2024-06-27 23:59 | disposition home or self-care (01) ==
LOC: CR 14:06
PROVIDERS: PCP Nurse Practitioner Family; Visit Provider Internal Medicine Cardiovascular Disease
DX: R69 Illness, unspecified (principal)

== ENCOUNTER 2024-06-26 00:22 | Outpatient (CLI) | payer OTHER, SELFPAY ==
--- NOTE | 2024-06-26 08:00 | DI.MAMMO_ITS ---
Exam(s) MAMMO SCREENING EXAM: MAMMO SCREENING CLINICAL HISTORY: screening Z12.39 SCREENING MAMMO TECHNIQUE: Bilateral full field digital CC and MLO mammographic images were obtained with 3D tomosyn thesis and utilizing computer aided detection (CAD). COMPARISON: Available for comparison. FINDINGS: Masses/Architectural Distortion: None seen. Microcalcifications: No suspicious pleomorphic-type are seen. Skin Thickening/Nipple Retraction: None. IMPRESSION: 1. No significant interval change with no specific features of malignancy noted. 2. Unless there is more urgent need, screening mammography is recommended, as per [employer] guidelines. BI-RADS Category 1 - Negative Breast Density - Category C - Heterogeneously dense Breast density category C or D implies that the patient has dense breast tissue. Dense breast tissue is very common and is not abnormal but dense breast tissue can make it harder to find cancer on a ma mmogram. Also, dense breast tissue may increase their breast cancer risk. This information about the result of the mammogram report was provided to the patient to raise their awareness. Use this report when you speak with the patient about their risks for breast cancer, which includes their family hist ory. At that time, you may recommend for more screening tests (Ultrasound or MRI) as they might be us eful based on their risk. A negative radiographic report should not delay biopsy if a dominant or clinically suspicious mass is present. Up to ten percent of cancers are not identified on mammography. A negative report may reinforce clinical impression. Adenosis and dense breasts may obscure an underlying neoplasm. False positive reports average 6 to 10%. Patient will receive a letter notifying them of these results.
== END 2024-06-26 00:42 ==
LOC: DI 00:22
PROVIDERS: PCP Nurse Practitioner Family; Visit Provider Nurse Practitioner Family
DX: Z12.31 Encounter for screening mammogram for malignant neoplasm of breast (principal); R92.323 Mammographic fibroglandular density, bilateral breasts
CPT/HCPCS: 77063; 77067

== ENCOUNTER 2024-06-30 14:09 | Outpatient (RCR) | payer SELFPAY ==
[2024-06-28 00:31] VITALS: BP 107/52; PULSE 75
[2024-06-30 14:19] VITALS: BP 121/48; PULSE 78
== END 2024-07-28 23:59 | disposition home or self-care (01) ==
LOC: CR 14:09
PROVIDERS: PCP Nurse Practitioner Family; Visit Provider Internal Medicine Cardiovascular Disease
DX: R69 Illness, unspecified (principal)

== ENCOUNTER 2024-07-07 14:06 | Outpatient (CLI) | payer OTHER, SELFPAY ==
[2024-07-07 14:31] LABS: COMMENT (LAB VIEW ONLY) 122.37 mg/dL; Hemoglobin A1C 7.6 % (<5.7); Microalb ug/mg Crea 28.5 ug/mg Cr
[2024-07-07 14:33] LABS: Anion Gap 5.4 mmol/L (3-11); BUN 39 mg/dL (7-18); CO2 30.6 mmol/L (21.0-32.0); CREATININE 1.2 mg/dL (0.55-1.02); Calcium 9.6 mg/dL (8.5-10.1); Chloride 106 mmol/L (98-107); Estimated GFR 51.82 (mL/min/1.73m2); Glucose 115 mg/dL (74-106); Potassium 4.2 mmol/L (3.5-5.1); Sodium 142 mmol/L (136-145)
== END 2024-07-07 14:07 | disposition home or self-care (01) ==
LOC: LBO 14:06
PROVIDERS: PCP Nurse Practitioner Family; Visit Provider Internal Medicine Endocrinology, Diabetes & Metabolism
DX: E10.65 Type 1 diabetes mellitus with hyperglycemia (principal); E10.649 Type 1 diabetes mellitus with hypoglycemia without coma; Z91.89 Other specified personal risk factors, not elsewhere classified; E78.00 Pure hypercholesterolemia, unspecified; E03.9 Hypothyroidism, unspecified
CPT/HCPCS: 36415; 80048; 82043; 82570; 83036

== ENCOUNTER 2024-11-16 15:35 | Outpatient (CLI) | payer OTHER, SELFPAY ==
[2024-11-16 16:05] LABS: Hemoglobin A1C 7.3 % (<5.7)
[2024-11-16 16:25] LABS: COMMENT (LAB VIEW ONLY) 86.85 mg/dL; Microalb ug/mg Crea 36.7 ug/mg Cr
[2024-11-16 16:29] LABS: ALT 35 U/L (14-59); AST 31 U/L (15-37); Albumin 3.5 g/dL (3.4-5.0); Alkaline Phosphatase 110 U/L (46-116); Anion Gap 6.7 mmol/L (3-11); BUN 32 mg/dL (7-18); Bilirubin, Total 0.3 mg/dL (0.2-1.0); CO2 28.3 mmol/L (21.0-32.0); CREATININE 1.2 mg/dL (0.55-1.02); Calcium 9.1 mg/dL (8.5-10.1); Calculated LDL 50 mg/dL (<100); Chloride 107 mmol/L (98-107); Cholesterol 106 mg/dL (<200); Estimated GFR 51.82 (mL/min/1.73m2); Glucose 164 mg/dL (74-106); HDL Cholesterol 47 mg/dL (>or=50); Potassium 4.4 mmol/L (3.5-5.1); Sodium 142 mmol/L (136-145); TSH 12.93 uIU/mL (0.36-3.74); Total Protein 7.3 g/dL (6.4-8.2); Triglyceride 49 mg/dL (<150)
== END 2024-11-16 15:36 | disposition home or self-care (01) ==
LOC: LBO 15:35
PROVIDERS: PCP Nurse Practitioner Family; Visit Provider Internal Medicine Endocrinology, Diabetes & Metabolism
DX: E10.65 Type 1 diabetes mellitus with hyperglycemia (principal); E10.649 Type 1 diabetes mellitus with hypoglycemia without coma; E10.42 Type 1 diabetes mellitus with diabetic polyneuropathy; E78.00 Pure hypercholesterolemia, unspecified; Z91.89 Other specified personal risk factors, not elsewhere classified
CPT/HCPCS: 36415; 80053; 80061; 82043; 82570; 83036; 84443

== ENCOUNTER 2024-11-19 14:25 | Outpatient (RCR) | payer SELFPAY ==
[2024-07-29 00:13] VITALS: BP 107/52; PULSE 75
[2024-10-27 14:27] VITALS: BP 138/78; PULSE 67
[2024-11-03 14:01] VITALS: BP 127/58; PULSE 80; O2SAT 96
[2024-11-05 14:43] VITALS: BP 134/60; PULSE 75; O2SAT 97
[2024-11-17 14:27] VITALS: BP 127/61; PULSE 73
[2024-11-19 14:23] VITALS: BP 120/56; PULSE 72
== END 2024-11-25 23:59 | disposition home or self-care (01) ==
LOC: CR 14:25
PROVIDERS: PCP Nurse Practitioner Family; Visit Provider Internal Medicine Cardiovascular Disease
DX: R69 Illness, unspecified (principal)

== ENCOUNTER 2024-12-24 14:00 | Outpatient (RCR) | payer SELFPAY ==
[2024-11-26 00:01] VITALS: BP 107/52; PULSE 75
[2024-12-01 15:37] VITALS: BP 131/63; PULSE 73
[2024-12-03 14:28] VITALS: BP 122/61; PULSE 69
[2024-12-08 14:30] VITALS: BP 107/57; PULSE 77
[2024-12-10 14:13] VITALS: BP 125/64; PULSE 70
[2024-12-17 14:52] VITALS: BP 132/65; PULSE 82
[2024-12-24 15:39] VITALS: BP 118/64; PULSE 77
== END 2024-12-26 23:59 | disposition home or self-care (01) ==
LOC: CR 14:00
PROVIDERS: PCP Nurse Practitioner Family; Visit Provider Internal Medicine Cardiovascular Disease
DX: R69 Illness, unspecified (principal)

== ENCOUNTER 2025-01-19 14:00 | Outpatient (RCR) | payer SELFPAY ==
[2024-12-27 00:03] VITALS: BP 107/52; PULSE 75
[2024-12-29 14:33] VITALS: BP 104/55; PULSE 82
[2024-12-31 14:09] VITALS: BP 121/52; PULSE 85
[2025-01-05 14:27] VITALS: BP 110/54; PULSE 80
[2025-01-07 14:28] VITALS: BP 109/64; PULSE 81
[2025-01-19 14:42] VITALS: BP 109/60; PULSE 86
== END 2025-01-25 23:59 | disposition home or self-care (01) ==
LOC: CR 14:00
PROVIDERS: PCP Nurse Practitioner Family; Visit Provider Internal Medicine Cardiovascular Disease
DX: R69 Illness, unspecified (principal)

== ENCOUNTER 2025-02-09 14:00 | Outpatient (RCR) | payer SELFPAY ==
[2025-01-28 14:30] VITALS: BP 122/58; PULSE 81; O2SAT 95
[2025-02-02 14:14] VITALS: BP 129/66; PULSE 75
[2025-02-09 14:14] VITALS: BP 134/63; PULSE 69
== END 2025-02-25 23:59 | disposition home or self-care (01) ==
LOC: CR 14:00
PROVIDERS: PCP Nurse Practitioner Family; Visit Provider Internal Medicine Cardiovascular Disease
DX: R69 Illness, unspecified (principal)

== ENCOUNTER 2025-02-22 12:16 | Outpatient (CLI) | payer OTHER, SELFPAY ==
[2025-02-22 09:13] LABS: Hemoglobin A1C 7.3 % (<5.7)
[2025-02-22 10:04] LABS: COMMENT (LAB VIEW ONLY) 29.31 mg/dL
[2025-02-22 10:10] LABS: Microalb ug/mg Crea 131.4 ug/mg Cr
== END 2025-02-22 12:17 | disposition home or self-care (01) ==
LOC: LBO 12:17
PROVIDERS: PCP Nurse Practitioner Family; Visit Provider Internal Medicine Endocrinology, Diabetes & Metabolism
DX: E10.65 Type 1 diabetes mellitus with hyperglycemia (principal); E10.649 Type 1 diabetes mellitus with hypoglycemia without coma; E10.42 Type 1 diabetes mellitus with diabetic polyneuropathy; E78.00 Pure hypercholesterolemia, unspecified; Z91.89 Other specified personal risk factors, not elsewhere classified
CPT/HCPCS: 36415; 82043; 82570; 83036

== ENCOUNTER 2025-03-23 14:00 | Outpatient (RCR) | payer SELFPAY ==
[2025-02-26 00:12] VITALS: BP 134/63; PULSE 69
[2025-03-04 14:22] VITALS: BP 106/57; PULSE 78
[2025-03-11 14:16] VITALS: BP 133/67; PULSE 80
[2025-03-23 14:28] VITALS: BP 125/66; PULSE 75
== END 2025-03-28 23:59 | disposition home or self-care (01) ==
LOC: CR 14:00
PROVIDERS: PCP Nurse Practitioner Family; Visit Provider Internal Medicine Cardiovascular Disease
DX: R69 Illness, unspecified (principal)

== ENCOUNTER 2025-04-27 14:00 | Outpatient (RCR) | payer SELFPAY ==
[2025-04-01 14:24] VITALS: BP 100/55; PULSE 80
[2025-04-06 14:30] VITALS: BP 111/58; PULSE 80
[2025-04-08 14:12] VITALS: BP 102/56; PULSE 79
[2025-04-15 14:20] VITALS: BP 109/56; PULSE 73
[2025-04-20 14:32] VITALS: BP 133/67; PULSE 77
[2025-04-22 14:40] VITALS: BP 135/65; PULSE 62
[2025-04-27 14:43] VITALS: BP 123/58; PULSE 78
== END 2025-04-27 23:59 | disposition home or self-care (01) ==
LOC: CR 14:00
PROVIDERS: PCP Nurse Practitioner Family; Visit Provider Internal Medicine Cardiovascular Disease
DX: R69 Illness, unspecified (principal)

== ENCOUNTER 2025-05-21 18:54 | Outpatient (CLI) | payer OTHER, SELFPAY ==
[2025-05-21 16:03] LABS: Hemoglobin A1C 7.6 % (<5.7)
[2025-05-21 16:43] LABS: ALT 44 U/L (14-59); AST 38 U/L (15-37); Albumin 3.6 g/dL (3.4-5.0); Alkaline Phosphatase 98 U/L (46-116); Anion Gap 8.8 mmol/L (3-11); BUN 36 mg/dL (7-18); Bilirubin, Total 0.3 mg/dL (0.2-1.0); CO2 29.2 mmol/L (21.0-32.0); Calcium 9.2 mg/dL (8.5-10.1); Calculated LDL 49 mg/dL (<100); Chloride 102 mmol/L (98-107); Cholesterol 115 mg/dL (<200); Estimated GFR 64.09 (mL/min/1.73m2); Glucose 127 mg/dL (74-106); HDL Cholesterol 52 mg/dL (>or=50); Potassium 4.5 mmol/L (3.5-5.1); Sodium 140 mmol/L (136-145); Total Protein 7.3 g/dL (6.4-8.2); Triglyceride 72 mg/dL (<150)
[2025-05-21 16:44] LABS: COMMENT (LAB VIEW ONLY) 86.46 mg/dL; Microalb ug/mg Crea 54.2 ug/mg Cr
== END 2025-05-21 18:55 | disposition home or self-care (01) ==
LOC: LBO 18:54
PROVIDERS: PCP Nurse Practitioner Family; Visit Provider Internal Medicine Endocrinology, Diabetes & Metabolism
DX: E10.65 Type 1 diabetes mellitus with hyperglycemia (principal); E10.42 Type 1 diabetes mellitus with diabetic polyneuropathy; E10.3599 Type 1 diabetes mellitus with proliferative diabetic retinopathy without macular edema, unspecified eye; E78.00 Pure hypercholesterolemia, unspecified
CPT/HCPCS: 36415; 80053; 80061; 82043; 82570; 83036

== ENCOUNTER 2025-05-25 14:00 | Outpatient (RCR) | payer SELFPAY ==
[2025-04-29 14:34] VITALS: BP 114/58; PULSE 73
[2025-05-04 14:09] VITALS: BP 107/60; PULSE 77
[2025-05-11 14:32] VITALS: BP 108/53; PULSE 77
[2025-05-25 14:32] VITALS: BP 93/59; PULSE 95
== END 2025-05-28 23:59 | disposition home or self-care (01) ==
LOC: CR 14:00
PROVIDERS: PCP Nurse Practitioner Family; Visit Provider Internal Medicine Cardiovascular Disease
DX: R69 Illness, unspecified (principal)

== ENCOUNTER 2025-06-22 14:00 | Outpatient (RCR) | payer SELFPAY ==
[2025-05-29 00:26] VITALS: BP 93/59; PULSE 95
[2025-06-08 14:31] VITALS: BP 122/73; PULSE 76
[2025-06-10 14:35] VITALS: BP 96/55; PULSE 84
[2025-06-17 14:12] VITALS: BP 109/58; PULSE 77
[2025-06-22 14:23] VITALS: BP 113/61; PULSE 70
== END 2025-06-27 23:59 | disposition home or self-care (01) ==
LOC: CR 14:00
PROVIDERS: PCP Nurse Practitioner Family; Visit Provider Internal Medicine Cardiovascular Disease
DX: I25.10 Atherosclerotic heart disease of native coronary artery without angina pectoris (principal); Z51.89 Encounter for other specified aftercare
CPT/HCPCS: S9472

== ENCOUNTER → 2025-07-06 00:30 | Outpatient (CLI) | payer OTHER, SELFPAY ==
--- NOTE | 2025-07-06 06:15 | DI.US_ITS ---
Exam(s) US PELVIS TRANSVAGINAL EXAM: US PELVIS TRANSVAGINAL CLINICAL HISTORY: postmenopausal bleeding,recurrent episode,n95.0 TECHNIQUE: Transabdominal and transvaginal imaging was performed using standard protocol. COMPARISON: CT CT ABDOMEN PELVIS W from 08/19/2023 FINDINGS: The bladder appears normal. UTERUS: Mildly retroflexed. 6.3 x 4.3 x 6 cm Endometrium: Abnormally thickened and heterogeneous as well vascular, 17 mm Myometrium: Heterogeneous. No discrete fibroids are seen. Cervix: Unremarkable. OVARIES: Right: Suboptimally visualized. Cyst or mass: None. Left: Cyst or mass: None. DOPPLER: Color: Symmetric and uniform flow to both ovaries. No hyperemia. CUL-DE-SAC: Free fluid: None. IMPRESSION: 1. Abnormally thickened, heterogeneous and vascular endometrium. 2. Heterogeneous myometrium without discrete fibroid. 3. Unremarkable bilateral ovaries. DATA REPOSITORY:
--- NOTE | 2025-07-06 06:15 | DI.MAMMO_ITS ---
Exam(s) MAMMO SCREENING EXAM: MAMMO SCREENING CLINICAL HISTORY: screening,z12.39 TECHNIQUE: Mammograms were interpreted according to the usual protocol including computer analysis with CAD system, tomosynthesis and C-view imaging. COMPARISON: 2016 through 2023 FINDINGS: The breasts are composed of heterogeneously dense fibroglandular densities, Breast Density category C. No suspicious masses or suspicious microcalcifications are seen. No skin thickening or abnormal axillary lymph nodes are seen. There has been no significant change from prior exams. IMPRESSION: BI-RADS Category 1, Negative mammogram. Yearly screening mammography is recommended. Breast Density: Category C - The breasts are heterogeneously dense, which may obscure small masses. Breast density Category C or D implies that the patient has dense breast tissue. Dense breast tissue can make it harder to find cancer on a mammogram. Dense breast tissue is also associated with an increased risk of breast cancer. This information about the result of the mammogram report was provided to the patient to raise their awareness. Use this report when you speak with the patient about their risks for breast cancer, which includes their family history. At that time, you may recommend additional screening tests (Ultrasound or MRI) as these tests may add significant information. A negative radiographic report should not delay biopsy if a dominant or clinically suspicious mass is present. Up to ten percent of cancers are not identified on mammography. A negative report may reinforce clinical impression. Adenosis and dense breasts may obscure an underlying neoplasm. False positive reports average 6 to 10%.
== END ==
LOC: DI 00:30
PROVIDERS: PCP Nurse Practitioner Family; Visit Provider Nurse Practitioner Family
DX: Z12.31 Encounter for screening mammogram for malignant neoplasm of breast (principal); N95.0 Postmenopausal bleeding; R92.323 Mammographic fibroglandular density, bilateral breasts; N85.8 Other specified noninflammatory disorders of uterus
CPT/HCPCS: 77063; 77067; 76830; 76856